=== PATIENT | male | born 1990 | race Caucasian/White ===

== ENCOUNTER 2018-08-18 22:34 | Outpatient (REF) | payer BC, SELFPAY ==
[2018-08-18 23:22] LABS: Anion Gap 11.3 mmol/L (3-11); BUN 18 mg/dL (7-18); CO2 28.7 mmol/L (21.0-32.0); CREATININE 1.14 mg/dL (0.70-1.30); Calcium 9.4 mg/dL (8.5-10.1); Chloride 100 mmol/L (98-107); Cholesterol 213 mg/dL (50-200); Glucose 79 mg/dL (70-100); HDL Cholesterol 52 mg/dL (40-60); LDL CHOLESTEROL 138 mg/dL (<100); Sodium 140 mmol/L (136-145); Triglyceride 123 mg/dL (30-150)
[2018-08-20 12:22] LABS: Lyme Ab w Rflx to Lyme Confirm Negative
[2018-08-22 01:15] LABS: Anaplasma phagocytophilum Negative (Negative); B. miyamotoi PCR Negative (Negative); Babesia divergens/MO-1 Negative (Negative); Babesia duncani Negative (Negative); Babesia microti Negative (Negative); Ehrlichia chaffeensis Negative (Negative); Ehrlichia ewingii/canis Negative (Negative); Ehrlichia muris eauclairensis Negative (Negative)
== END 2018-08-18 22:54 ==
LOC: NCHCN 22:34
PROVIDERS: PCP Physician Assistant Medical; Visit Provider Specialist/Technologist Athletic Trainer
DX: W57.XXXA Bitten or stung by nonvenomous insect and other nonvenomous arthropods, initial encounter (principal); T14.8XXA Other injury of unspecified body region, initial encounter
CPT/HCPCS: 80048; 80061; 83721; 86618; 87798

== ENCOUNTER 2018-09-26 10:10 | Emergency (ER) | payer OTHER, SELFPAY ==
[2018-09-26 10:12] VITALS: BP 138/91; PULSE 86; RESP 14; TEMP 36.6; O2SAT 100
--- NOTE | 2018-09-26 10:18 | W.ED.GENAD ---
Discharge Plan Disposition Patient Disposition: HOME Condition: Stable Discharge Details Chief Complaint: Orthopedic Clinical Impression: Contusion of left little finger Primary Care Provider: Barb Jaimes ED Provider: Godfrey Walden Home Meds and New Rx's Prescriptions: Continued albuterol sulfate 8.5 GM HFA aerosol inhaler 2 puff Inhalation Q4H PRN RF: 0 dextroamphetamine-amphetamine [Adderall] 20 mg Tablet 10 - 20 mg PO BID RF: 0 Discharge Instructions Instructions: Contusion in Adults (ED) Additional Instructions: you can take 1000mg tylenol and 600mg ibuprofen every 6 hours for pain as needed if you continue to have pain in one week see your primary care provider Medical Decision Making 28 yo male states 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 Did not hit any other body part, no falls or head trauma and only has pain of distal left and mid pinky. Has mild swelling, has full rom of the left pinky with intact sensation, doubt tendon or neurovascular injury. Will xray to eval for fx xray negative on my read, placed in splint for comfort and advised f/u with pcp if pain continues next week Differential Diagnosis sprain, fx, dislocation Imaging Data Radiologic Study: Attestation: I personally reviewed and interpreted this imaging study as follows: Imaging: X-Ray My impression: no acute findings HPI General Mode of arrival: ambulatory. Date/Time Provider Initiated Documentation: 09/26/18 10:11. Limitations to Documentation: no limitations. Information obtained by: patient. History of Present Illness 28 year old M presents to the emergency department with the chief complaint of left pinky pain, described as moderate, with intensity rated at 4. Quality is described as aching, and is localized to the left and upper extremity. Patient reports no radiation. Patient started experiencing this hour(s) (1) and it has been constant. No relieving factors improve symptom(s), No exacerbating factors reported . Patient notes no other symptoms.. Patient did receive the following treatments prior to arrival, none Related Data Home Medications Medication Instructions Recorded Confirmed albuterol sulfate 2 puff INHALATION Q4H PRN inhaler 09/08/13 09/26/18 dextroamphetamine-amphetamine 10 - 20 mg PO BID 09/26/18 09/26/18 [Adderall] Allergies Allergy/AdvReac Type Severity Reaction Status Date / Time lisinopril Allergy Severe Anaphylaxsi Unverified 09/26/18 10:17 s shellfish derived Allergy Severe throat Unverified 09/26/18 10:17 swelling dust/mold Allergy Mild Wheezing Uncoded 09/26/18 10:17 General Stated Complaint: Orthopedic MONY: 4 Review of Systems Review of Systems All systems reviewed & are unremarkable except as noted in HPI and below Constitutional Denies chills and Denies fever(s) Cardiovascular Denies chest pain and Denies dyspnea Respiratory Denies cough and Denies dyspnea Gastrointestinal Denies abdominal pain, Denies nausea and Denies vomiting Musculoskeletal Denies joint swelling Integumentary/Breasts Denies rash PFSH Social History Smoking and Tabacco status: Former Tobacco Use Exam Const General: no acute distress Orientation: alert HENMT Head: normal to inspection Ears: external ears normal General nose exam: external nose normal Mouth: moist mucous membranes Eyes General: appearance normal, both eyes and all related structures Neck Neck: normal visual inspection Resp Effort & Inspection: normal respiratory effort and able to speak in complete sentences Cardio Rate: regular rate Skin General skin exam: no rashes or lesions noted Neuro General: alert and oriented x3 Extrem General: full ROM and normal capillary refill Psych Mental Status: mental status grossly normal Course Vital Signs Temperature 36.6 C 09/26/18 10:12 Pulse 86 09/26/18 10:12 Respiratory Rate 14 09/26/18 10:12 Blood Pressure 138/91 H 09/26/18 10:12 Pulse Oximetry 100 09/26/18 10:12 Temperature 36.6 C 09/26/18 10:12 Temperature Source Skin 09/26/18 10:12 Pulse 86 09/26/18 10:12 Respiratory Rate 14 09/26/18 10:12 Blood Pressure 138/91 H 09/26/18 10:12 Blood Pressure Position Sitting 09/26/18 10:12 Pulse Oximetry 100 09/26/18 10:12 Oxygen Delivery Method Room Air 09/26/18 10:12 Oxygen Flow Rate 0 09/26/18 10:12 Pain Level 10 09/26/18 10:12
--- NOTE | 2018-09-26 10:21 | DI.RAD_ITS ---
SYMPTOM/DIAGNOSIS: TRAUMA, PAIN, LACERATION LEFT LITTLE FINGER: Three views. No bone or joint abnormality is identified. The soft tissues are unremarkable. IMPRESSION: No acute abnormality.
--- NOTE | 2018-09-26 10:27 | ED.GENADUL_ITS ---
Discharge Plan Disposition Patient Disposition: HOME Condition: Stable Discharge Details Chief Complaint: Orthopedic Clinical Impression: Contusion of left little finger Primary Care Provider: Barb Jaimes ED Provider: Godfrey Walden Home Meds and New Rx's Prescriptions: Continued albuterol sulfate 8.5 GM HFA aerosol inhaler 2 puff Inhalation Q4H PRN RF: 0 dextroamphetamine-amphetamine [Adderall] 20 mg Tablet 10 - 20 mg PO BID RF: 0 Discharge Instructions Instructions: Contusion in Adults (ED) Additional Instructions: you can take 1000mg tylenol and 600mg ibuprofen every 6 hours for pain as needed if you continue to have pain in one week see your primary care provider Medical Decision Making 28 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 Did not hit any other body part, no falls or head trauma and only has pain of distal left and mid pinky. Has mild swelling, has full rom of the left pinky with intact sensation, doubt tendon or neurovascular injury. Will xray to eval for fx xray negative on my read, placed in splint for comfort and advised f/u with pcp if pain continues next week Differential Diagnosis sprain, fx, dislocation Imaging Data Radiologic Study: Attestation: I personally reviewed and interpreted this imaging study as follows: Imaging: X-Ray My impression: no acute findings HPI General Mode of arrival: ambulatory . Date/Time Provider Initiated Documentation: 09/26/18 10:11 . Limitations to Documentation: no limitations . Information obtained by: patient . History of Present Illness 28 year old M presents to the emergency department with the chief complaint of left pinky p ain, described as moderate, with intensity rated at 4. Quality is described as aching, and is localized to the left and upper extremity. Patient reports no radiation. Patient started experiencing this hour(s) (1) and it has been constant. No relieving factors improve symptom(s), No exacerbating factors reported . Patient notes no other symptoms.. Patient did receive the following treatments prior to arrival, none Related Data Home Medications Medication Instructions Recorded Confirmed albuterol sulfate 2 puff INHALATION Q4H PRN inhaler 09/08/13 09/26/18 dextroamphetamine-amphetamine 10 - 20 mg PO BID 09/26/18 09/26/18 [Adderall] Allergies Allergy/AdvReac Type Severity Reaction Status Date / Time lisinopril Allergy Severe Anaphylaxsi Unverified 09/26/18 10:17 s shellfish derived Allergy Severe throat Unverified 09/26/18 10:17 swelling dust/mold Allergy Mild Wheezing Uncoded 09/26/18 10:17 General Stated Complaint: Orthopedic MONY: 4 Review of Systems Review of Systems All systems reviewed & are unremarkable except as noted in HPI and below Constitutional Denies chills and Denies fever(s) Cardiovascular Denies chest pain and Denies dyspnea Respiratory Denies cough and Denies dyspnea Gastrointestinal Denies abdominal pain, Denies nausea and Denies vomiting Musculoskeletal Denies joint swelling Integumentary/Breasts Denies rash PFSH Social History Smoking and Tabacco status: Former Tobacco Use Exam Const General: no acute distress Orientation: alert HENMT Head: normal to inspection Ears: external ears normal General nose exam: external nose normal Mouth: moist mucous membranes Eyes General: appearance normal, both eyes and all related structures Neck Neck: normal visual inspection Resp Effort & Inspection: normal respiratory effort and able to speak in complete sentences Cardio Rate: regular rate Skin General skin exam: no rashes or lesions noted Neuro General: alert and oriented x3 Extrem General: full ROM and normal capillary refill Psych Mental Status: mental status grossly normal Course Vital Signs Temperature 36.6 C 09/26/18 10:12 Pulse 86 09/26/18 10:12 Respiratory Rate 14 09/26/18 10:12 Blood Pressure 138/91 H 09/26/18 10:12 Pulse Oximetry 100 09/26/18 10:12 Temperature 36.6 C 09/26/18 10:12 Temperature Source Skin 09/26/18 10:12 Pulse 86 09/26/18 10:12 Respiratory Rate 14 09/26/18 10:12 Blood Pressure 138/91 H 09/26/18 10:12 Blood Pressure Position Sitting 09/26/18 10:12 Pulse Oximetry 100 09/26/18 10:12 Oxygen Delivery Method Room Air 09/26/18 10:12 Oxygen Flow Rate 0 09/26/18 10:12 Pain Level 10 09/26/18 10:12
== END 2018-09-26 11:06 | disposition home or self-care (01) ==
PROVIDERS: Emergency Provider Emergency Medicine; PCP Physician Assistant Medical
DX: S60.052A Contusion of left little finger without damage to nail, initial encounter (principal); W22.8XXA Striking against or struck by other objects, initial encounter; Y99.0 Civilian activity done for income or pay; I10 Essential (primary) hypertension
CPT/HCPCS: 29130; 99283; 73140

== ENCOUNTER 2019-01-29 00:44 | Outpatient (CLI) | payer SELFPAY ==
--- NOTE | 2019-01-29 15:25 | DI.US_ITS ---
SYMPTOM/DIAGNOSIS: ABD PAIN R10.9 ? VENT.HERNIA VS MUSCLE STRAIN ULTRASOUND ABDOMINAL WALL: The left lower quadrant was scanned in the area of the patient's pain. No hernia is demonstrated. There is no fluid collection in the anterior abdominal wall. IMPRESSION: Negative exam. If there is further suspicion of a concerning hernia, a CT could be performed.
== END 2019-01-29 01:04 ==
PROVIDERS: PCP Physician Assistant Medical; Visit Provider Specialist/Technologist Athletic Trainer
DX: R10.32 Left lower quadrant pain
CPT/HCPCS: 76857

== ENCOUNTER 2019-08-21 14:11 | Outpatient (REF) | payer BC, SELFPAY ==
[2019-08-21 19:37] LABS: HCT 46.9 % (40.0-50.0); HGB 16.4 g/dL (13.5-17.5)
[2019-08-21 20:02] LABS: BUN 16 mg/dL (7-18); CREATININE 0.86 mg/dL (0.70-1.30); Calcium 9.1 mg/dL (8.5-10.1); Chloride 103 mmol/L (98-107); Glucose 82 mg/dL (74-106); Magnesium 2.2 mg/dL (1.8-2.4); Potassium 4.1 mmol/L (3.5-5.1); Sodium 141 mmol/L (136-145); TSH (W/Ref FT4) 1.46 uIU/mL (0.36-3.74)
== END 2019-08-21 14:31 ==
LOC: NCHCN 14:11
PROVIDERS: PCP Physician Assistant Medical; Visit Provider Specialist/Technologist Athletic Trainer
DX: Z00.00 Encounter for general adult medical examination without abnormal findings (principal); Z13.29 Encounter for screening for other suspected endocrine disorder; Z13.0 Encounter for screening for diseases of the blood and blood-forming organs and certain disorders involving the immune mechanism; Z13.228 Encounter for screening for other metabolic disorders
CPT/HCPCS: 80048; 83735; 84443; 85014; 85018

== ENCOUNTER 2019-09-05 14:51 | Emergency (ER) | payer BC, SELFPAY ==
[2019-09-05 14:55] VITALS: BP 129/70; PULSE 101; RESP 16; TEMP 37.5; O2SAT 97
--- NOTE | 2019-09-05 15:06 | W.ED.GENAD ---
Discharge Plan Disposition Patient Disposition: HOME Condition: Stable Discharge Details Chief Complaint: RespSymp Clinical Impression: Influenza A Primary Care Provider: Patrick Horn ED Provider: Jerel Marsh Home Meds and New Rx's Prescriptions: No Action albuterol sulfate 8.5 GM HFA aerosol inhaler 2 puff Inhalation Q4H PRN RF: 0 dextroamphetamine-amphetamine [Adderall] 20 mg Tablet 10 - 20 mg PO BID RF: 0 Discharge Instructions Instructions: Influenza (ED) Additional Instructions: Home to rest today. Small, frequent sips of fluids so that you maintain hydration. May use Tylenol 650 to 975 mg every 6 hours as needed for aches, pains, fever. You may also use ibuprofen 600 mg every 6-8 hours. Begin bland diet as tolerated. May use the provided inhaler as needed for cough during times of illness. Medical Decision Making 29-year-old male presents with 3 to 4 days of cough, congestion, body ache, fever. Pulse is elevated at 101 at rest, blood pressure normal 129/70, temp is 37.5 and oxygenation 97%. He does have few scant end expiratory wheeze on exam and is referred for chest x-ray. Differential diagnosis would include influenza, pneumonitis, bronchitis, viral syndrome. Influenza test is positive for influenza A. Chest x-ray without focal infiltrate. Patient improved following 2 L of fluids and medications, the patient is improving. Able to take liquids and ate a popsicle without difficulty. Discussed with the patient home management. He is not a candidate for Tamiflu. He understands homecare as well as indications to seek reevaluation. HPI General Mode of arrival: ambulatory. Date/Time Provider Initiated Documentation: 09/05/19 14:52. Limitations to Documentation: no limitations. Information obtained by: patient. History of Present Illness 29 year old M presents to the emergency department with the chief complaint of Fever, cough, body aches for 4+ days, described as moderate, Quality is described as dull and constant, and is localized to the chest. and it has been constant. No relieving factors improve symptom(s), No exacerbating factors reported . Patient notes cough, fever/chills, loss of appetite and malaise. Patient did receive the following treatments prior to arrival, none Related Data Home Medications Medication Instructions Recorded Confirmed albuterol sulfate 2 puff INHALATION Q4H PRN inhaler 09/08/13 09/05/19 dextroamphetamine-amphetamine 10 - 20 mg PO BID 09/26/18 09/05/19 [Adderall] Allergies Allergy/AdvReac Type Severity Reaction Status Date / Time lisinopril Allergy Severe Anaphylaxsi Unverified 09/05/19 14:57 s shellfish derived Allergy Severe throat Unverified 09/05/19 14:57 swelling dust/mold Allergy Mild Wheezing Uncoded 09/05/19 14:57 General Stated Complaint: RespSymp MONY: 4 Review of Systems Narrative: Otherwise has been well, eating and drinking depressed but tolerating, no rash. No known travel. FOR[facility], LATER [facility] Social History Smoking/Tobacco Use Status: Former Tobacco Use Alcohol Intake: never Drug use: Never Do you feel safe in your relationship?: Yes Exam Narrative Exam Narrative: GEN: awake, alert, oriented 3. Pleasant, well groomed, interactive. HEAD: Normocephalic, atraumatic ENT: Mucous membranes moist, oropharynx unremarkable, External ear exam unremarkable EYES: PERRL, EOMI NECK: Full ROM, no SERAFIN, no menigismus CHEST/RESP: Nontender, wheeze and rhonchi at right base CARDIOVASCULAR: Borderline tachycardia at rest, no murmur, rub ger. 2+ Rad pulse bilateral ABDOMEN: Soft, nontender, no mass. +Bowel sounds EXT: Full ROM, no edema, no rash Neuro: Grossly normal neurologic exam, conversant, interactive. Psych: Speech fluent, thoughts congruent, affect normal Course Vital Signs Vital signs: Vital Signs Temperature 37.5 C 09/05/19 14:55 Pulse 101 H 09/05/19 14:55 Respiratory Rate 16 09/05/19 14:55 Blood Pressure 129/70 09/05/19 14:55 Pulse Oximetry 97 09/05/19 14:55 Temperature 37.5 C 09/05/19 14:55 Temperature Source Skin 09/05/19 14:55 Pulse 101 H 09/05/19 14:55 Respiratory Rate 16 09/05/19 14:55 Respiratory Effort Non-Labored 09/05/19 15:03 Respiratory Depth Normal 09/05/19 15:03 Blood Pressure 129/70 09/05/19 14:55 Blood Pressure Position Sitting 09/05/19 14:55 Pulse Oximetry 97 09/05/19 14:55 Oxygen Delivery Method Room Air 09/05/19 14:55 Oxygen Flow Rate 0 09/05/19 14:55 Pain Level 10 09/05/19 14:55
[2019-09-05] MEDS: Normal Saline 1,000 ML 1000 ML IV ×2 (15:30→16:35)
[2019-09-05] MEDS: Ketorolac 30 MG/ML VIAL IVP (15:32)
[2019-09-05] MEDS: Albuterol/Ipratropium 3 ML UPD VIAL UPD ×2 (15:34)
[2019-09-05 15:43] LABS: Abs Immature Grans 0.01 k/cumm (0.0-0.09); Absolute Basophil Count 0.01 k/cumm (0.0-0.2); Absolute Lymphocyte Count 0.75 k/cumm (1.2-3.4); Absolute Monocyte Count 0.76 k/cumm (0.11-0.7); Basophils % 0.1; HCT 46.4 % (40.0-50.0); HGB 15.9 g/dL (13.5-17.5); Immature Grans % 0.1 %; Lymphocytes % 8.4; Mean Corp. HGB Concentration 34.3 g/dL (32.0-36.0); Mean Corpuscular Hemoglobin 29.7 pg (27.0-33.0); Mean Corpuscular Volume 86.7 fL (80-95); Mean Platelet Volume 9.6 fL (8.0-11.0); Monocytes % 8.5; Neutrophils % 82.9; Platelet Count 182 x1000/uL (130-400); RBC 5.35 m/cumm (4.50-6.00); RBC Distribution Width 12.9 % (11.8-14.1); White Blood Cell Count 8.93 k/cumm (4.4-10.8)
[2019-09-05 15:45] LABS: BUN 15 mg/dL (7-18); CREATININE 1.02 mg/dL (0.70-1.30); Calcium 8.2 mg/dL (8.5-10.1); Chloride 99 mmol/L (98-107); Glucose 96 mg/dL (74-106); Potassium 3.8 mmol/L (3.5-5.1); Sodium 134 mmol/L (136-145)
--- NOTE | 2019-09-05 16:02 | DI.RAD_ITS ---
EXAM: XR CHEST 2V PA LATERAL INDICATION: cough, fever. COMPARISON: No exams were available for comparison TECHNIQUE: 2D digital imaging was performed. FINDINGS: The cardiac and mediastinal contours have a normal appearance. The lungs appear clear. No infiltrat e or effusion is seen. IMPRESSION: Negative chest x-ray.
[2019-09-05 16:33] VITALS: TEMP 38.5
--- NOTE | 2019-09-05 16:40 | DI.VRAD_ITS ---
PROCEDURE INFORMATION: Exam: XR Chest, 2 Views Exam date and time: 09/05/2019 4:04 PM Age: 29 years old Clinical indication: Cough; Additional info: Flu + TECHNIQUE: Imaging protocol: XR of the chest Views: 2 views. COMPARISON: No relevant prior studies available. FINDINGS: Lungs: No focal consolidation. Strandiness in the right lower lobe may represent atelectasis. Pleural space: Unremarkable. No pleural effusion. No pneumothorax. Heart/Mediastinum: Unremarkable. No cardiomegaly. Bones/joints: Unremarkable. IMPRESSION: No focal consolidation. Dictated and Authenticated by: Arnoldo Zhang MD. Ordering:ELIF Beltrán MD
[2019-09-05] MEDS: Acetaminophen 500 MG TAB 1000 MG PO (16:41)
[2019-09-05 17:07] VITALS: BP 123/62; PULSE 108; RESP 18; TEMP 37.7; O2SAT 96
[2019-09-05] MEDS: Albuterol HFA 8 GM 60 PUFF INH IH (17:11)
[2019-09-05] MEDS: Inhaler, Assist Device 1 EACH MC (17:12)
[2019-09-05 17:32] VITALS: BP 123/62; PULSE 108; RESP 18; TEMP 37.7; O2SAT 96
== END 2019-09-05 17:29 | disposition home or self-care (01) ==
PROVIDERS: Emergency Provider Emergency Medicine; PCP Specialist/Technologist Athletic Trainer
DX: J10.1 Influenza due to other identified influenza virus with other respiratory manifestations (principal)
CPT/HCPCS: 80048; 87449; 94640; 96361; 96374; 99284; 71046; 85025; 99283; J1885; J7620

== ENCOUNTER 2019-09-23 09:16 | Emergency (ER) | payer BC, SELFPAY ==
[2019-09-23] VITALS (46 sets, daily range): BP systolic 113–147; BP diastolic 60–98; PULSE 66–99; RESP 10–24; TEMP 36.6–37.1; O2SAT 98–100
[2019-09-23 09:55] LABS: Abs Immature Grans 0.01 k/cumm (0.0-0.09); Absolute Basophil Count 0.02 k/cumm (0.0-0.2); Absolute Eosinophil Count 0.05 k/cumm (0.0-0.7); Absolute Lymphocyte Count 1.48 k/cumm (1.2-3.4); Absolute Monocyte Count 0.59 k/cumm (0.11-0.7); Absolute Neutrophil Count 4.25 k/cumm (1.2-6.7); Basophils % 0.3; Eosinophils % 0.8; HCT 43.6 % (40.0-50.0); HGB 15.6 g/dL (13.5-17.5); Immature Grans % 0.2 %; Lymphocytes % 23.1; Mean Corp. HGB Concentration 35.8 g/dL (32.0-36.0); Mean Corpuscular Hemoglobin 30.1 pg (27.0-33.0); Mean Corpuscular Volume 84.2 fL (80-95); Mean Platelet Volume 9.7 fL (8.0-11.0); Monocytes % 9.2; Neutrophils % 66.4; Platelet Count 341 x1000/uL (130-400); RBC 5.18 m/cumm (4.50-6.00); RBC Distribution Width 12.4 % (11.8-14.1)
[2019-09-23 10:19] LABS: ALT 96 U/L (16-63); AST 35 U/L (15-37); Albumin 4.1 g/dL (3.4-5.0); Alkaline Phosphatase 101 U/L (46-116); Anion Gap 7.5 mmol/L (3-11); BUN 18 mg/dL (7-18); Bilirubin, Total 0.5 mg/dL (0.2-1.0); CO2 29.5 mmol/L (21.0-32.0); CREATININE 1.01 mg/dL (0.70-1.30); Calcium 8.6 mg/dL (8.5-10.1); Chloride 103 mmol/L (98-107); Glucose 98 mg/dL (74-106); Magnesium 1.9 mg/dL (1.8-2.4); NT-proBNP 14 pg/mL (<300); Potassium 4.3 mmol/L (3.5-5.1); Sodium 140 mmol/L (136-145); Troponin I < 0.05 ng/Ml (<0.06)
[2019-09-23] MEDS: Normal Saline Flush 10 ML SYR IVP ×2 (10:47→11:30)
[2019-09-23 11:01] LABS: D-Dimer 106 ng/mlFEU (<500)
--- NOTE | 2019-09-23 11:04 | DI.RAD_ITS ---
EXAM: XR CHEST 2V PA LATERAL CLINICAL HISTORY: chest pain TECHNIQUE: 2D digital imaging was performed. COMPARISON: No exams were available for comparison FINDINGS: The cardiac and mediastinal contours have a normal appearance. The lungs are well inflated and clear . No infiltrate, effusion or pneumothorax is seen. No spine or rib fracture is identified. IMPRESSION: Negative chest x-ray.
--- NOTE | 2019-09-23 11:18 | W.ED.GENAD ---
Discharge Plan Disposition Patient Disposition: HOME Condition: Stable Discharge Details Chief Complaint: Chest Pain Clinical Impression: Chest pain, Pericarditis Primary Care Provider: Patrick Horn ED Provider: Susan Gamez Home Meds and New Rx's Prescriptions: New colchicine [Colcrys] 0.6 mg tablet 0.6 mg PO DAILY Qty: 30 RF: 0 oxycodone-acetaminophen [Percocet] 5-325 mg tablet 1 tab PO BID PRN (Reason: pain) Qty: 8 RF: 0 Continued albuterol sulfate 8.5 GM HFA aerosol inhaler 2 puff Inhalation Q4H PRN RF: 0 dextroamphetamine-amphetamine [Adderall] 20 mg Tablet 10 - 20 mg PO BID RF: 0 Discharge Instructions Instructions: Ibuprofen (By mouth), Oxycodone/Acetaminophen (By mouth), Omeprazole (By mouth), Colchicine (By mouth), Chest Pain (ED), Chronic Pericarditis (ED) Additional Instructions: Please return immediately to the emergency department if you develop any new or worsening symptoms, if your condition does not improve as expected, or if you become otherwise concerned. It is extremely important that you call soon as possible to make an appointment to be seen in follow-up for this visit by your primary care doctor and that you attend your scheduled appointment with your junior analyst on 10/05/2019. You will need to take 0.6 mg of colchicine daily for 3 months, you are being prescribed a one-month prescription at this time. Please take 600 mg of ibuprofen 3 times daily for 1 month, then 600 mg of ibuprofen 2 times daily for 1 week, then 600 mg of ibuprofen once daily for 1 week. You are being prescribed Percocet for pain. Percocet is a sedating medication and can be dangerous if not taking as prescribed. Please take Percocet only as prescribed, do not take Percocet before driving, operating machinery, making important decisions, or taking care of small children. Please do not take any other sedating medications, drugs, or alcohol while taking Percocet. Referrals: Patrick Horn [Primary Care Provider] - Discharge Data Discharge Date/Time-TO BE ENTERED AT DEPARTURE: 09/23/19 13:57 Medical Decision Making Vargas Shen is a 29-year-old man with a history of hypertension, asthma, ADHD, recurrent pericarditis presenting to the emergency department with chest pain after being diagnosed with pericarditis 2 weeks ago; patient started medications 2 weeks ago, had gradual improvement in pain and then 1 week ago developed worsening of pain to initial level. On exam patient is very well and nontoxic appearing. Benign cardiopulmonary exam. Grossly nonfocal neurologic exam. POCUS shows no pericardial effusion. Concern for continued pericarditis in setting of inappropriately dosed NSAIDs/colchicine therapy (typically treatment involves 3 months of daily colchicine and 3 times daily not as needed NSAIDs for several weeks), doubt ACS/pulmonary embolism, myocarditis. Exam/history is not consistent with sepsis, acute aortic process, other acute emergent life-threatening etiology. Plan for EKG, chest x-ray, screening labs, repeat Trope/EKG if initial work-up negative. Will discuss patient with cardiology. Patient given IV morphine for pain, patient reporting minimal relief. Patient reports that he was prescribed Percocet in the distant past for pericarditis, which seem to work well. Will give Percocet. Discussed patient with Dr. Montiel of cardiology at [facility], who recommends patient be restarted on daily colchicine and 3 times daily ibuprofen. Patient is unsure of who his cardiology appointment is with, he has not seen this particular junior analyst before, but junior analyst practices in [place]. Likely part of [facility] practice. I called [facility] and patient presentation and results with cardiology team, (EKG faxed, cardiology reviewed) who confirmed that patient should be taking 0.6 mg of colchicine once daily given weight less than 70 kg, 600 mg of ibuprofen 3 times a day for 4 weeks with taper thereafter, no further emergent evaluation/treatment recommended at this time.. They will ensure patient has close outpatient follow-up. Plan to increase omeprazole to 20 mg twice daily. Will give short course Percocet for acute pain. VPMS checked without red flags. I had a lengthy discussion with the patient regarding medication dosing, including colchicine 0.6 mg once daily, ibuprofen 600 mg 3 times daily for 1 month with details for taper, omeprazole 20 mg twice daily. I had a lengthy discussion with Patient regarding return to emergency department precautions, home care, safe use of Percocet, and importance of outpatient follow-up. Pt verbalizes understanding of the plan and is amenable. Patient is ambulatory in the emergency department without issue. Patient discharged to home with clear plan for outpatient follow-up. All questions were answered. Disposition decision was made weighing the risks and benefits of hospitalization versus outpatient treatment, the risk for further decompensation, and the patient's wishes. Medical Records Medical records reviewed: Yes I reviewed the patient's medical records. Imaging Data Radiologic Study: Attestation: I personally reviewed and interpreted this imaging study as follows: Radiologist's impression: EXAM: XR CHEST 2V PA LATERAL CLINICAL HISTORY: chest pain TECHNIQUE: 2D digital imaging was performed. COMPARISON: No exams were available for comparison FINDINGS: The cardiac and mediastinal contours have a normal appearance. The lungs are well inflated and clear. No infiltrate, effusion or pneumothorax is seen. No spine or rib fracture is identified. IMPRESSION: Negative chest x-ray. Lab Data Lab results reviewed: Yes I reviewed the patient's lab results. Labs: Laboratory Tests Range/Units 09/23/19 09/23/19 09/23/19 09:35 09:35 09:35 WBC (4.4-10.8) k/cumm 6.40 RBC (4.50-6.00) m/cumm 5.18 Hgb (13.5-17.5) g/dL 15.6 Hct (40.0-50.0) % 43.6 MCV (80-95) fL 84.2 MCH (27.0-33.0) pg 30.1 MCHC (32.0-36.0) g/dL 35.8 RDW (11.8-14.1) % 12.4 Plt Count (130-400) x1000/uL 341 D MPV (8.0-11.0) fL 9.7 Immature Gran % % 0.2 Neutrophils % 66.4 Lymphocytes % 23.1 Monocytes % 9.2 Eosinophils % 0.8 Basophils % 0.3 Absolute Neutrophils (1.2-6.7) k/cumm 4.25 Absolute Lymphocytes (1.2-3.4) k/cumm 1.48 Absolute Monocytes (0.11-0.7) k/cumm 0.59 Absolute Eosinophils (0.0-0.7) k/cumm 0.05 Absolute Basophils (0.0-0.2) k/cumm 0.02 ESR (0-15) mm/hr D-Dimer (<500) ng/mlFEU 106 Sodium (136-145) mmol/L 140 Potassium (3.5-5.1) mmol/L 4.3 Chloride (98-107) mmol/L 103 Carbon Dioxide (21.0-32.0) mmol/L 29.5 Anion Gap (3-11) mmol/L 7.5 BUN (7-18) mg/dL 18 Creatinine (0.70-1.30) mg/dL 1.01 Estimated GFR/1.73 m2 (mL/min/1.73m2) >= 60.00 Glucose (74-106) mg/dL 98 Calcium (8.5-10.1) mg/dL 8.6 Magnesium (1.8-2.4) mg/dL 1.9 Total Bilirubin (0.2-1.0) mg/dL 0.5 AST (15-37) U/L 35 ALT (16-63) U/L 96 H Alkaline Phosphatase (46-116) U/L 101 Troponin I (<0.06) ng/Ml < 0.05 C-Reactive Protein (0.0-0.3) mg/dL NT-Pro-B Natriuret Pep (<300) pg/mL 14 Total Protein (6.4-8.2) g/dL 7.0 Albumin (3.4-5.0) g/dL 4.1 Range/Units 09/23/19 09/23/19 09/23/19 12:10 12:10 12:10 WBC (4.4-10.8) k/cumm RBC (4.50-6.00) m/cumm Hgb (13.5-17.5) g/dL Hct (40.0-50.0) % MCV (80-95) fL MCH (27.0-33.0) pg MCHC (32.0-36.0) g/dL RDW (11.8-14.1) % Plt Count (130-400) x1000/uL MPV (8.0-11.0) fL Immature Gran % % Neutrophils % Lymphocytes % Monocytes % Eosinophils % Basophils % Absolute Neutrophils (1.2-6.7) k/cumm Absolute Lymphocytes (1.2-3.4) k/cumm Absolute Monocytes (0.11-0.7) k/cumm Absolute Eosinophils (0.0-0.7) k/cumm Absolute Basophils (0.0-0.2) k/cumm ESR (0-15) mm/hr 3 D-Dimer (<500) ng/mlFEU Sodium (136-145) mmol/L Potassium (3.5-5.1) mmol/L Chloride (98-107) mmol/L Carbon Dioxide (21.0-32.0) mmol/L Anion Gap (3-11) mmol/L BUN (7-18) mg/dL Creatinine (0.70-1.30) mg/dL Estimated GFR/1.73 m2 (mL/min/1.73m2) Glucose (74-106) mg/dL Calcium (8.5-10.1) mg/dL Magnesium (1.8-2.4) mg/dL Total Bilirubin (0.2-1.0) mg/dL AST (15-37) U/L ALT (16-63) U/L Alkaline Phosphatase (46-116) U/L Troponin I (<0.06) ng/Ml < 0.05 C-Reactive Protein (0.0-0.3) mg/dL < 0.05 NT-Pro-B Natriuret Pep (<300) pg/mL Total Protein (6.4-8.2) g/dL Albumin (3.4-5.0) g/dL ECG Data Attestation: I personally reviewed and interpreted this ECG (s) as follows: Interpretation: EKG shows sinus rhythm at 91, normal axis, no acute ischemic ST changes, subtle OK depression, nondiagnostic EKG EKG 12:18 shows sinus rhythm at 64, normal axis, no acute ischemic ST changes, subtle OK depression, nondiagnostic EKG HPI General Mode of arrival: ambulatory. Date/Time Provider Initiated Documentation: 09/23/19 09:28. Limitations to Documentation: no limitations. Information obtained by: patient, RN notes reviewed and old records reviewed. HPI Narrative: Vargas Shen is a 29-year-old man with a history of hypertension, ADHD, recurrent pericarditis presenting to the emergency department with chest pain. Patient reports that he was first diagnosed 3 years ago with pericarditis. He has had several episodes of pericarditis since then, and he states that he has had 2 episodes already in the past year not including current episode. Patient had leftover indomethacin and took 1 tab this morning. Patient reports that 3 to 4 days after initially starting medications he began to have a decrease in his chest pain, but he reports that 1 week ago chest pain seemed to gradually increase and now has returned to its initial level. Patient reports that pain is worse when he is bending forward, and is also worse with any positional change, exertion, or deep breathing. Patient reports that all of his symptoms are typical in location, severity, and quality to his usual episodes of pericarditis, however typically his symptoms improve with medication. Has not been taking pain medication. He denies any other pain, fever, vomiting, diarrhea, numbness, weakness, rash, cough, shortness of breath. Has been eating and drinking as usual. No recent travel. Has appointment to see a junior analyst in 1 month. Related Data Home Medications Medication Instructions Recorded Confirmed albuterol sulfate 2 puff INHALATION Q4H PRN inhaler 09/08/13 09/23/19 dextroamphetamine-amphetamine 10 - 20 mg PO BID 09/26/18 09/23/19 [Adderall] colchicine [Colcrys] 0.6 mg PO DAILY #30 tab 09/23/19 oxycodone-acetaminophen [Percocet] 1 tab PO BID PRN #8 tab 09/23/19 Previous Rx's Medication Instructions Recorded colchicine [Colcrys] 0.6 mg PO DAILY #30 tab 09/23/19 oxycodone-acetaminophen [Percocet] 1 tab PO BID PRN #8 tab 09/23/19 Allergies Allergy/AdvReac Type Severity Reaction Status Date / Time lisinopril Allergy Severe Anaphylaxsi Unverified 09/23/19 09:27 s shellfish derived Allergy Severe throat Unverified 09/23/19 09:27 swelling dust/mold Allergy Mild Wheezing Uncoded 09/23/19 09:27 General Stated Complaint: Chest Pain MONY: 2 Review of Systems Narrative: Constitutional: denies fevers Eyes: denies eye pain ENT: denies ear pain, dental pain, sore throat Cardiovascular: denies edema, reports chest pain Respiratory: denies SOB, cough GI: denies abdominal pain, vomiting, diarrhea : denies flank pain MSK: denies back pain, neck pain, arthralgias, myalgias Skin: denies rash Neuro: denies headaches, numbness, weakness PFSH Social History Smoking/Tobacco Use Status: Former Tobacco Use Alcohol Intake: never Drug use: Never Do you feel safe in your relationship?: Yes Exam Narrative Exam Narrative: Constitutional: well and [id number], pleasant, conversing normally HENT: head atraumatic/normocephalic/normal inspection, mucous membranes moist Eyes: conjunctiva normal, sclera normal, pupils 3mm b/l Neck: no stridor, normal ROM, trachea midline Chest: normal inspection Resp: normal work of breathing, LCTAB Cardio: normal rate, normal rhythm, no murmur appreciated Back: normal inspection, no rash Skin: warm, dry, normal color, no rash Neuro: alert, not altered, grossly non-focal, normal tone Ext: no edema, no posterior calf tenderness to palpation Psych: normal mood, normal affect, normal behavior Course Vital Signs Vital signs: Vital Signs Temperature 37.1 C 09/23/19 09:24 Pulse 89 09/23/19 09:24 Respiratory Rate 16 09/23/19 09:24 Blood Pressure 136/96 H 09/23/19 09:24 Pulse Oximetry 100 09/23/19 09:24 Temperature 37.1 C 09/23/19 09:24 Pulse 71 09/23/19 10:46 Pulse 87 09/23/19 10:50 Respiratory Rate 19 09/23/19 10:50 Respiratory Effort Non-Labored 09/23/19 09:40 Respiratory Depth Normal 09/23/19 09:40 Respiratory Pattern Normal 09/23/19 09:40 Blood Pressure 125/71 09/23/19 10:46 Blood Pressure Mean 84 09/23/19 10:46 Blood Pressure Position Supine 09/23/19 09:24 Pulse Oximetry 100 09/23/19 10:50 Oxygen Delivery Method Room Air 09/23/19 09:24 Oxygen Flow Rate 0 09/23/19 09:24 Pain Level 8 09/23/19 10:47 Lab/Test Results Lab/Test Results: Laboratory Tests Range/Units 09/23/19 09/23/19 09/23/19 09:35 09:35 09:35 WBC (4.4-10.8) k/cumm 6.40 RBC (4.50-6.00) m/cumm 5.18 Hgb (13.5-17.5) g/dL 15.6 Hct (40.0-50.0) % 43.6 MCV (80-95) fL 84.2 MCH (27.0-33.0) pg 30.1 MCHC (32.0-36.0) g/dL 35.8 RDW (11.8-14.1) % 12.4 Plt Count (130-400) x1000/uL 341 D MPV (8.0-11.0) fL 9.7 Immature Gran % % 0.2 Neutrophils % 66.4 Lymphocytes % 23.1 Monocytes % 9.2 Eosinophils % 0.8 Basophils % 0.3 Absolute Neutrophils (1.2-6.7) k/cumm 4.25 Absolute Lymphocytes (1.2-3.4) k/cumm 1.48 Absolute Monocytes (0.11-0.7) k/cumm 0.59 Absolute Eosinophils (0.0-0.7) k/cumm 0.05 Absolute Basophils (0.0-0.2) k/cumm 0.02 D-Dimer (<500) ng/mlFEU 106 Sodium (136-145) mmol/L 140 Potassium (3.5-5.1) mmol/L 4.3 Chloride (98-107) mmol/L 103 Carbon Dioxide (21.0-32.0) mmol/L 29.5 Anion Gap (3-11) mmol/L 7.5 BUN (7-18) mg/dL 18 Creatinine (0.70-1.30) mg/dL 1.01 Estimated GFR/1.73 m2 (mL/min/1.73m2) >= 60.00 Glucose (74-106) mg/dL 98 Calcium (8.5-10.1) mg/dL 8.6 Magnesium (1.8-2.4) mg/dL 1.9 Total Bilirubin (0.2-1.0) mg/dL 0.5 AST (15-37) U/L 35 ALT (16-63) U/L 96 H Alkaline Phosphatase (46-116) U/L 101 Troponin I (<0.06) ng/Ml < 0.05 NT-Pro-B Natriuret Pep (<300) pg/mL 14 Total Protein (6.4-8.2) g/dL 7.0 Albumin (3.4-5.0) g/dL 4.1
[2019-09-23] MEDS: Normal Saline 1,000 ML 1000 ML IV (11:30)
[2019-09-23] MEDS: oxyCODONE 5 mg/Acetaminophen 325 mg TAB 1 TAB PO (12:02)
[2019-09-23] MEDS: Colchicine 0.6 MG TAB PO (12:13)
[2019-09-23 12:41] LABS: C-Reactive Protein < 0.05 mg/dL (0.0-0.3)
[2019-09-23 12:43] LABS: Troponin I < 0.05 ng/Ml (<0.06)
[2019-09-23 13:04] LABS: ESR 3 mm/hr (0-15)
== END 2019-09-23 13:57 | disposition home or self-care (01) ==
PROVIDERS: Emergency Provider Student in an Organized Health Care Education/Training Program; PCP Specialist/Technologist Athletic Trainer
DX: I30.8 Other forms of acute pericarditis (principal); R07.9 Chest pain, unspecified; I10 Essential (primary) hypertension
CPT/HCPCS: 36415; 80053; 85652; 93005; 96361; 96374; 99285; 71046; 83735; 83880; 84484; 85025; 85379; 86140; 93010

== ENCOUNTER 2020-03-14 19:46 | Emergency (ER) | payer BC, SELFPAY ==
[2020-03-14] VITALS (16 sets, daily range): BP systolic 117–169; BP diastolic 76–119; PULSE 58–107; RESP 16–29; TEMP 36.4–36.8; O2SAT 98–100
--- NOTE | 2020-03-14 19:52 | ED.GENADUL_ITS ---
Discharge Plan Disposition Patient Disposition: HOME Condition: Improving Discharge Details Chief Complaint: Allergic Clinical Impression: Hymenoptera sting Primary Care Provider: Patrick Horn ED Provider: Jerel Marsh Home Meds and New Rx's Prescriptions: New prednisone 20 mg tablet 40 mg PO DAILY 3 Days Qty: 6 RF: 0 No Action albuterol sulfate 8.5 GM HFA aerosol inhaler 2 puff Inhalation Q4H PRN RF: 0 dextroamphetamine-amphetamine [Adderall] 20 mg Tablet 10 - 20 mg PO BID RF: 0 colchicine [Colcrys] 0.6 mg tablet 0.6 mg PO DAILY Qty: 30 RF: 0 Discharge Instructions Additional Instructions: Please take prednisone as prescribed. May apply Benadryl cream and or [id number]-[id number] hydrocortisone cream to area of the bite to reduce discomfort and itching. Continue your regular medications. Return to the emergency department for any acute concern. 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 He is otherwise been well. He arrives slightly anxious, hypertensive and tachycardic. IV placed, patient given fluid bolus, parenteral steroids, antihistamines. He is observed. Patient improved. Subjectively better and blood pressure and pulse improving. I will treat him with a small burst of steroids to prevent recrudescence of symptoms. He is stable and appropriate for discharge to home at this time. HPI General Mode of arrival: ambulatory . Date/Time Provider Initiated Documentation: 03/14/20 19:48 . Limitations to Documentation: no limitations . Information obtained by: patient . History of Present Illness 29 year old M presents to the emergency department with the chief complaint of Insect sting right shoulder, described as moderate and similar to prior episodes, Quality is described as dull and constant, and is localized to the right and upper extremity. Patient reports no radiation. Patient started experiencing this minute(s) and it has been constant. No relieving factors improve symptom(s), No exacerbating factors reported . Patient notes other (Slight chest tightness); denies shortness of breath. Patient did receive the following treatments prior to arrival, none Related Data Home Medications Medication Instructions Recorded Confirmed albuterol sulfate 2 puff INHALATION Q4H PRN inhaler 09/08/13 03/14/20 dextroamphetamine-amphetamine 10 - 20 mg PO BID 09/26/18 03/14/20 [Adderall] colchicine [Colcrys] 0.6 mg PO DAILY #30 tab 09/23/19 03/14/20 prednisone 40 mg PO DAILY 3 Days #6 tab 03/14/20 Previous Rx's Medication Instructions Recorded colchicine [Colcrys] 0.6 mg PO DAILY #30 tab 09/23/19 prednisone 40 mg PO DAILY 3 Days #6 tab 03/14/20 Allergies Allergy/AdvReac Type Severity Reaction Status Date / Time lisinopril Allergy Severe Anaphylaxsi Unverified 03/14/20 19:52 s shellfish derived Allergy Severe throat Unverified 03/14/20 19:52 swelling dust/mold Allergy Mild Wheezing Uncoded 03/14/20 19:52 General Stated Complaint: Allergic MONY: 2 Review of Systems Narrative: No other complaint. 4 systems reviewed and otherwise negative [facility] Social History Smoking/Tobacco Use Status: Former Tobacco Use Alcohol Intake: never Drug use: Never Substance use type: does not use Do you feel safe at home: Yes Do you feel safe in your relationship?: Yes Exam Narrative Exam Narrative: GEN: awake, alert, oriented 3. Pleasant, well groomed, interactive. HEAD: Normocephalic, atraumatic ENT: Mucous membranes moist, oropharynx unremarkable, External ear exam unremarkable EYES: PERRL, EOMI NECK: Full ROM, no SERAFIN, no menigismus CHEST/RESP: Nontender, clear to auscultation bilateral, no wheeze/rhonchi/rales CARDIOVASCULAR: RRR, no murmur, rub ger. 2+ Rad pulse bilateral ABDOMEN: Soft, nontender, no mass. +Bowel sounds EXT: Full ROM, no edema, 5 cm area of raised erythema right shoulder with probable central area of an envenomation Neuro: Grossly normal neurologic exam, conversant, interactive. Psych: Speech fluent, thoughts congruent, affect anxious Course Vital Signs Vital signs: Vital Signs Temperature 36.8 C 03/14/20 19:50 Pulse 107 H 03/14/20 19:50 Blood Pressure 169/119 H 03/14/20 19:50 Pulse Oximetry 98 03/14/20 19:50 Temperature 36.8 C 03/14/20 19:50 Temperature Source Temporal Artery Scan 03/14/20 19:50 Pulse 107 H 03/14/20 19:50 Blood Pressure 169/119 H 03/14/20 19:50 Blood Pressure Position Sitting 03/14/20 19:50 Pulse Oximetry 98 03/14/20 19:50 Oxygen Delivery Method Room Air 03/14/20 19:50 Oxygen Flow Rate 0 03/14/20 19:50
[2020-03-14] MEDS: Loratidine 10 MG TAB PO (20:05)
[2020-03-14] MEDS: methylPREDNISolone SUCC 125 MG VIAL IVP (20:05)
[2020-03-14] MEDS: diphenhydrAMINE 50 MG/ML VIAL IVP (20:06)
[2020-03-14] MEDS: Normal Saline Flush 10 ML SYR IVP (20:06)
[2020-03-14] MEDS: Normal Saline 1,000 ML 1000 ML IV (20:06)
[2020-03-14] MEDS: FAMOTIDINE 20 MG/50 ML BAG 200 MG IVPB (20:10)
== END 2020-03-14 21:45 | disposition home or self-care (01) ==
PROVIDERS: Emergency Provider Emergency Medicine; PCP Specialist/Technologist Athletic Trainer
DX: T63.461A Toxic effect of venom of wasps, accidental (unintentional), initial encounter (principal); R07.89 Other chest pain; R00.0 Tachycardia, unspecified; R03.0 Elevated blood-pressure reading, without diagnosis of hypertension; R21 Rash and other nonspecific skin eruption
CPT/HCPCS: 96361; 96375; 99284; J1200; J2930

== ENCOUNTER 2021-05-04 20:52 | Outpatient (REF) | payer SELFPAY ==
[2021-05-04 19:29] LABS: Abs Immature Grans 0.02 10^3/uL (0.0-0.06); Absolute Basophil Count 0.04 10^3/uL (0.0-0.2); Absolute Eosinophil Count 0.18 10^3/uL (0.0-0.7); Absolute Lymphocyte Count 1.74 10^3/uL (1.2-3.4); Absolute Monocyte Count 0.66 10^3/uL (0.1-0.8); Absolute Neutrophil Count 4.23 10^3/uL (1.2-6.7); Basophils % 0.6; Eosinophils % 2.6; HCT 48.4 % (40.0-50.0); HGB 16.7 g/dL (13.5-17.5); Immature Grans % 0.3; Lymphocytes % 25.3; MCH 30.1 pg (27.0-33.0); MCHC 34.5 % (32.0-36.0); MCV 87.2 fL (80-95); Monocytes % 9.6; Neutrophils % 61.6; Nucleated RBC 0 %; Platelet Count 322 10^3/uL (130-400); RBC 5.55 10^6/uL (4.36-5.78); RDW 11.7 % (11.8-14.1); RDW-SD 37.6 fL; WBC 6.87 10^3/uL (4.4-10.8)
[2021-05-06 13:24] LABS: COVID-19 RT-PCR UVMMC Result Negative (Negative)
== END 2021-05-04 20:53 | disposition home or self-care (01) ==
LOC: NCHCN 20:52
PROVIDERS: PCP Specialist/Technologist Athletic Trainer; Visit Provider Nurse Practitioner Family
DX: Z20.822 Contact with and (suspected) exposure to COVID-19 (principal); R53.83 Other fatigue
CPT/HCPCS: U0003; 85025

== ENCOUNTER 2022-04-20 16:57 | Emergency (ER) | payer MEDICAID, SELFPAY ==
[2022-04-20 17:12] VITALS: BP 123/76; PULSE 86; RESP 18; TEMP 36.8; O2SAT 100
[2022-04-20] MEDS: Lactated Ringers 1,000 ML 1000 ML IV (18:10)
[2022-04-20 18:18] LABS: Abs Immature Grans 0.02 10^3/uL (0.0-0.06); Absolute Basophil Count 0.03 10^3/uL (0.0-0.2); Absolute Eosinophil Count 0.17 10^3/uL (0.0-0.7); Absolute Lymphocyte Count 1.08 10^3/uL (1.2-3.4); Absolute Monocyte Count 0.53 10^3/uL (0.1-0.8); Absolute Neutrophil Count 5.81 10^3/uL (1.2-6.7); Basophils % 0.4; Eosinophils % 2.2; HCT 45.6 % (40.0-50.0); Immature Grans % 0.3; Lymphocytes % 14.1; MCHC 35.1 % (32.0-36.0); MCV 86 fL (80-95); MPV 9.6 fL (8.0-11.0); Monocytes % 6.9; Neutrophils % 76.1; Platelet Count 230 10^3/uL (130-400); RBC 5.33 10^6/uL (4.36-5.78); RDW 12.3 % (11.8-14.1); RDW-SD 38.4 fL; WBC 7.64 10^3/uL (4.4-10.8)
[2022-04-20 18:27] LABS: ALT 50 U/L (16-63); AST 26 U/L (15-37); Albumin 3.5 g/dL (3.4-5.0); Alkaline Phosphatase 106 U/L (46-116); Anion Gap 7.3 mmol/L (3-11); BUN 17 mg/dL (7-18); Bilirubin, Total 0.4 mg/dL (0.2-1.0); CO2 28.7 mmol/L (21.0-32.0); CREATININE 1.1 mg/dL (0.70-1.30); Calcium 8.4 mg/dL (8.5-10.1); Chloride 102 mmol/L (98-107); Glucose 103 mg/dL (74-106); Potassium 3.7 mmol/L (3.5-5.1); Sodium 138 mmol/L (136-145); Total Protein 6.9 g/dL (6.4-8.2)
[2022-04-20 18:57] LABS: COVID-19 PCR Negative (Negative); Influenza A PCR Negative (Negative); Influenza B PCR Negative (Negative); RSV PCR Negative (Negative)
[2022-04-20 19:02] LABS: Source Nasopharynx
[2022-04-20 20:15] LABS: Bilirubin Negative (Negative); Blood Negative (Negative); Clarity Sl Cloudy (Clear); Glucose Negative (Negative); Ketones Negative (Negative); Leukocyte Esterase Negative (Negative); Nitrite Negative (Negative); Specific Gravity >= 1.030 (1.005-1.025); Urobilinogen 0.2 EU/dL (Up TO 0.2)
[2022-04-20 20:21] LABS: Bacteria Few HPF (Negative); C & S Indicated? No; Casts Negative LPF (Negative); Crystals Negative HPF (Negative); Epithelial Cells Few HPF (Negative); Mucus Negative (Negative); RBC Negative HPF (0-2); WBC 0-2 HPF (0-5)
[2022-04-23 10:51] LABS: Lyme Ab w Rflx to Lyme Confirm Negative (Negative)
--- NOTE | 2022-04-23 21:46 | ED.GENADUL_ITS ---
Discharge Plan Disposition Patient Disposition: HOME Condition: Stable Discharge Details Clinical Impression: Diarrhea, Acute viral syndrome Primary Care Provider: Patrick Horn ED Provider: Nolvia Pichardo Home Meds and New Rx's Prescriptions: Continued albuterol sulfate 8.5 GM HFA aerosol inhaler 2 puff Inhalation Q4H PRN dextroamphetamine-amphetamine [Adderall] 20 mg Tablet 10 - 20 mg PO BID Rx Instructions: 20mg qam 10mg afternoon epinephrine 0.3 mg/0.3 mL auto-injector 0.3 mg IM ONCE Qty: 1 0RF Rx Instructions: as a single dose if needed for impending anaphylaxis colchicine [Colcrys] 0.6 mg tablet 0.6 mg PO DAILY Qty: 30 0RF Discharge Instructions Instructions: Acute Diarrhea (ED), Viral Syndrome (ED) Additional Instructions: keep yourself hydrated Take ibuprofen and Tylenol for pain Bring back a stool sample to the lab as soon as you are able to and return earlier should he have new or worsening complaints Your tick panel should be back in approximately 72 hours Referrals: Patrick Horn [Primary Care Provider] - 1 day Discharge Data Discharge Date/Time-TO BE ENTERED AT DEPARTURE: 04/20/22 20:30 Medical Decision Making Patient appears well, his diagnostic labs do not show significant evidence of acute abnormality, unable to provide stool sample in the emergency department given supplies for home Do not see an obvious bacterial source of infection No rashes or lesions Tick panel pending [id number] remedies recommended Return precautions discussed and patient expressed understanding Medical Records Medical records reviewed: Yes I reviewed the patient's medical records. Lab Data Lab results reviewed: Yes I reviewed the patient's lab results. HPI General Date/Time Provider Initiated Documentation: 04/20/22 17:42 . HPI Narrative: This 31-year-old male presents with fever, myalgias, and diarrhea for the past 2 days. T-max of 103. Denies any known sick contacts. Denies any cough or runny nose. COVID test negative at home. Denies any blood in stool. Denies any nausea or vomiting. Otherwise reportedly. Denies abdominal pain, camping, foreign travel. Related Data Home Medications Medication Instructions Recorded Confirmed albuterol sulfate 90 mcg/actuation 2 puff inhalation Q4H PRN 09/08/13 04/20/22 aerosol inhaler dextroamphetamine-amphetamine 20 10 - 20 mg PO BID 09/26/18 04/20/22 mg tablet (Adderall) colchicine 0.6 mg tablet (Colcrys) 0.6 mg PO DAILY #30 tabs 09/23/19 03/14/20 epinephrine 0.3 mg/0.3 mL 0.3 mg (0.3 mL) IM ONCE #1 ea 03/14/20 04/20/22 injection, auto-injector Previous Rx's Medication Instructions Recorded colchicine 0.6 mg tablet (Colcrys) 0.6 mg PO DAILY #30 tabs 09/23/19 epinephrine 0.3 mg/0.3 mL 0.3 mg (0.3 mL) IM ONCE #1 ea 03/14/20 injection, auto-injector Allergies Allergy/AdvReac Type Severity Reaction Status Date / Time lisinopril Allergy Severe Anaphylaxsi Unverified 03/14/20 19:52 s shellfish derived Allergy Severe throat Unverified 03/14/20 19:52 swelling bee venom protein (honey bee) Allergy Swelling/Ed Unverified 04/20/22 17:15 stephanie dust/mold Allergy Mild Wheezing Uncoded 03/14/20 19:52 General Stated Complaint: GenMedical MONY: 3 Review of Systems All systems reviewed & are unremarkable except as noted in HPI and below PFSH All Active Problems (Updated 04/20/22 @ 19:34 by NIR Gutierrez) Hypertension (Chronic) Chest pain (Acute) Pericarditis (Acute) Diarrhea (Acute) Acute viral syndrome (Acute) Social History Smoking/Tobacco Use Status: Former Tobacco Use Smoking risk assessment performed?: Yes Alcohol Intake: never Drug use: Occasionally Substance use type: marijuana Do you feel safe at home: Yes Do you feel safe in your relationship?: Yes Exam Const General: cooperative, comfortable and no acute distress HENMT Throat: uvula midline Eyes Sclera: sclerae normal Neck Other: no meningismus Resp Effort & Inspection: normal respiratory effort Auscultation: clear to auscultation bilaterally Cardio Rate: regular rate Rhythm: regular rhythm GI Inspection: normal to inspection Other: non-tender Skin General skin exam: no rashes or lesions noted Neuro General: patient alert and patient oriented x3 Course Vital Signs Vital signs: Vital Signs Temperature 36.8 C 04/20/22 17:12 Pulse 86 04/20/22 17:12 Respiratory Rate 18 04/20/22 17:12 Blood Pressure 123/76 04/20/22 17:12 Pulse Oximetry 100 04/20/22 17:12 Temperature 36.8 C 04/20/22 17:12 Temperature Source Temporal Artery Scan 04/20/22 17:12 Pulse 86 04/20/22 17:12 Respiratory Rate 18 04/20/22 17:12 Respiratory Effort Non-Labored 04/20/22 18:11 Respiratory Depth Normal 04/20/22 18:11 Respiratory Pattern Normal 04/20/22 18:11 Blood Pressure 123/76 04/20/22 17:12 Blood Pressure Position Sitting 04/20/22 17:12 Pulse Oximetry 100 04/20/22 17:12 Oxygen Delivery Method Room Air 04/20/22 17:12 Oxygen Flow Rate 0 04/20/22 17:12 Lab/Test Results Lab/Test Results: Laboratory Tests Range/Units 04/20/22 04/20/22 04/20/22 18:00 18:00 18:00 WBC (4.4-10.8) 10^3/uL 7.64 RBC (4.36-5.78) 10^6/uL 5.33 Hgb (13.5-17.5) g/dL 16.0 Hct (40.0-50.0) % 45.6 MCV (80-95) fL 86 MCH (27.0-33.0) pg 30.0 MCHC (32.0-36.0) % 35.1 RDW (11.8-14.1) % 12.3 Plt Count (130-400) 10^3/uL 230 MPV (8.0-11.0) fL 9.6 Immature Gran % 0.3 Neutrophils % 76.1 Lymphocytes % 14.1 Monocytes % 6.9 Eosinophils % 2.2 Basophils % 0.4 Nucleated RBC % (0.0-0.3) % 0.0 Absolute Neutrophils (1.2-6.7) 10^3/uL 5.81 Absolute Lymphocytes (1.2-3.4) 10^3/uL 1.08 L Absolute Monocytes (0.1-0.8) 10^3/uL 0.53 Absolute Eosinophils (0.0-0.7) 10^3/uL 0.17 Absolute Basophils (0.0-0.2) 10^3/uL 0.03 Sodium (136-145) mmol/L 138 Potassium (3.5-5.1) mmol/L 3.7 Chloride (98-107) mmol/L 102 Carbon Dioxide (21.0-32.0) mmol/L 28.7 Anion Gap (3-11) mmol/L 7.3 BUN (7-18) mg/dL 17 Creatinine (0.70-1.30) mg/dL 1.1 Est GFR (CKD-EPI 2020) (mL/min/1.73m2) 90.90 Glucose (74-106) mg/dL 103 Calcium (8.5-10.1) mg/dL 8.4 L Total Bilirubin (0.2-1.0) mg/dL 0.4 AST (15-37) U/L 26 ALT (16-63) U/L 50 Alkaline Phosphatase (46-116) U/L 106 Total Protein (6.4-8.2) g/dL 6.9 Albumin (3.4-5.0) g/dL 3.5 Urine Color (Yellow) Urine Clarity (Clear) Urine pH (5-8) Ur Specific Franklin (1.005-1.025) Urine Protein (Negative) mg/dL Urine Ketones (Negative) mg/dL Urine Blood (Negative) Urine Nitrite (Negative) Urine Bilirubin (Negative) Urine Urobilinogen (Up TO 0.2) EU/dL Ur Leukocyte Esterase (Negative) Urine RBC (0-2) HPF Urine WBC (0-5) HPF Ur Epithelial Cells (Negative) HPF Urine Crystals (Negative) HPF Urine Bacteria (Negative) HPF Urine Casts (Negative) LPF Urine Mucus (Negative) Ur Culture Indicated? Urine Glucose (Negative) mg/dL Lyme Disease Antibody (Negative) Negative COVID-19 Source SARS-CoV-2 (PCR) (Negative) Influenza Type A (PCR) (Negative) Influenza Type B (PCR) (Negative) RSV (PCR) (Negative) Range/Units 04/20/22 04/20/22 18:05 20:08 WBC (4.4-10.8) 10^3/uL RBC (4.36-5.78) 10^6/uL Hgb (13.5-17.5) g/dL Hct (40.0-50.0) % MCV (80-95) fL MCH (27.0-33.0) pg MCHC (32.0-36.0) % RDW (11.8-14.1) % Plt Count (130-400) 10^3/uL MPV (8.0-11.0) fL Immature Gran % Neutrophils % Lymphocytes % Monocytes % Eosinophils % Basophils % Nucleated RBC % (0.0-0.3) % Absolute Neutrophils (1.2-6.7) 10^3/uL Absolute Lymphocytes (1.2-3.4) 10^3/uL Absolute Monocytes (0.1-0.8) 10^3/uL Absolute Eosinophils (0.0-0.7) 10^3/uL Absolute Basophils (0.0-0.2) 10^3/uL Sodium (136-145) mmol/L Potassium (3.5-5.1) mmol/L Chloride (98-107) mmol/L Carbon Dioxide (21.0-32.0) mmol/L Anion Gap (3-11) mmol/L BUN (7-18) mg/dL Creatinine (0.70-1.30) mg/dL Est GFR (CKD-EPI 2020) (mL/min/1.73m2) Glucose (74-106) mg/dL Calcium (8.5-10.1) mg/dL Total Bilirubin (0.2-1.0) mg/dL AST (15-37) U/L ALT (16-63) U/L Alkaline Phosphatase (46-116) U/L Total Protein (6.4-8.2) g/dL Albumin (3.4-5.0) g/dL Urine Color (Yellow) Yellow Urine Clarity (Clear) Sl Cloudy Urine pH (5-8) 6.0 Ur Specific Franklin (1.005-1.025) >= 1.030 H Urine Protein (Negative) mg/dL Trace H Urine Ketones (Negative) mg/dL Negative Urine Blood (Negative) Negative Urine Nitrite (Negative) Negative Urine Bilirubin (Negative) Negative Urine Urobilinogen (Up TO 0.2) EU/dL 0.2 Ur Leukocyte Esterase (Negative) Negative Urine RBC (0-2) HPF Negative Urine WBC (0-5) HPF 0-2 Ur Epithelial Cells (Negative) HPF Few Urine Crystals (Negative) HPF Negative Urine Bacteria (Negative) HPF Few Urine Casts (Negative) LPF Negative Urine Mucus (Negative) Negative Ur Culture Indicated? No Urine Glucose (Negative) mg/dL Negative Lyme Disease Antibody (Negative) COVID-19 Source Nasopharynx SARS-CoV-2 (PCR) (Negative) Negative Influenza Type A (PCR) (Negative) Negative Influenza Type B (PCR) (Negative) Negative RSV (PCR) (Negative) Negative
[2022-04-25 22:51] LABS: Anaplasma phagocytophilum Negative (Negative); B. miyamotoi PCR Negative (Negative); Babesia divergens/MO-1 Negative (Negative); Babesia duncani Negative (Negative); Babesia microti Negative (Negative); Ehrlichia chaffeensis Negative (Negative); Ehrlichia ewingii/canis Negative (Negative); Ehrlichia muris eauclairensis Negative (Negative)
== END 2022-04-20 20:30 | disposition home or self-care (01) ==
PROVIDERS: Emergency Provider Physician Assistant; PCP Nurse Practitioner Family
DX: B34.9 Viral infection, unspecified (principal); Z20.822 Contact with and (suspected) exposure to COVID-19; Z87.891 Personal history of nicotine dependence
CPT/HCPCS: 36415; 80053; 87637; 87798; 96360; 99284; 81003; 81015; 85025; 86618

== ENCOUNTER 2022-08-10 20:39 | Emergency (ER) | payer MEDICAID, SELFPAY ==
--- NOTE | 2022-08-10 20:45 | DI.RAD_ITS ---
Exam(s) XR FOOT RT COMPLETE EXAM: XR FOOT RT COMPLETE CLINICAL HISTORY: Injury, R/O Fracture. TECHNIQUE: 2D digital imaging was performed. Three views. COMPARISON: No exams were available for comparison FINDINGS: BONES: No acute fracture is present. No bony destructive lesion is seen. JOINTS: No dislocation present. SOFT TISSUE: Normal. IMPRESSION: Unremarkable radiographs of the right foot. DATA REPOSITORY: RADIATION DOSE DELIVERED:
[2022-08-10 20:46] VITALS: BP 160/90; PULSE 100; RESP 18; TEMP 37; O2SAT 99
--- NOTE | 2022-08-10 21:05 | W.ED.GENAD ---
Discharge Plan Disposition Patient Disposition: Home Condition: Stable Discharge Details Clinical Impression: Crush injury of right foot Primary Care Provider: Alee Chang ED Provider: Maylin Lambert Home Meds and New Rx's Prescriptions: Continued albuterol sulfate 8.5 GM HFA aerosol inhaler 2 puff Inhalation Q4H PRN omega-3 fatty acids-fish oil [Fish Oil] 360-1,200 mg capsule 2 cap PO DAILY vitamin B complex [Vitamins B Complex] Capsule 1 cap PO DAILY cholecalciferol (vitamin D3) 50 mcg (2,000 unit) capsule 50 mcg PO DAILY cyclobenzaprine 5 mg tablet 5 mg PO QHS acetylcysteine [NAC] 600 mg capsule 600 mg PO DAILY dextroamphetamine-amphetamine [Adderall] 20 mg Tablet 10 - 20 mg PO BID Rx Instructions: 20mg qam 10mg afternoon epinephrine 0.3 mg/0.3 mL auto-injector 0.3 mg IM ONCE Qty: 1 0RF Rx Instructions: as a single dose if needed for impending anaphylaxis colchicine [Colcrys] 0.6 mg tablet 0.6 mg PO DAILY Qty: 30 0RF Discharge Instructions Instructions: Foot Sprain (ED) Additional Instructions: Rest, ice, compression, elevation. Use the crutches weightbearing advance as tolerated. Please take Tylenol or Ibuprofen with food every 4-6 hours as needed for pain and swelling. Follow up with primary care provider in 3-5 days if any worsening. Increase oral fluids. Referrals: Alee Chang [Primary Care Provider] - Return if symptoms worsen Medical Decision Making Medical Records Medical records narrative: 32-year-old male presents to the ER with chief complaint of right foot pain status post hitting it with a hammer at 3:00 this afternoon. No obvious deformity no ecchymosis no significant swelling. He is complaining of lateral foot pain and toe pain. X-rays show no acute bony abnormality. No significant soft tissue swelling. I did discuss results with patient who verbalized understanding. Jordan wrap ordered and crutches. I did offer her a work note which patient declined. Did discuss RICE procedures and Tylenol ibuprofen. This text was generated using [email or web address] system, please disregard any oddities of phrase or misspellings. Imaging Data Radiologic Study: Imaging: X-Ray Radiologist's impression: Imaging protocol: Radiologic exam of the Right foot. Views: 3 or more views. COMPARISON: No relevant prior studies available. FINDINGS: Bones/joints: No acute fracture. No dislocation. Soft tissues: No soft tissue foreign body, gas, or significant swelling. IMPRESSION: 1. No acute fracture or dislocation. 2. No significant soft tissue swelling. No foreign body. Thank you for allowing us to participate in the care of your patient. Dictated and Authenticated by: Chuck Wick MD [facility] General Mode of arrival: ambulatory. Date/Time Provider Initiated Documentation: 08/10/22 20:40. Limitations to Documentation: no limitations. Information obtained by: patient, RN notes reviewed and old records reviewed. HPI Narrative: 32-year-old male presents to the ER with chief complaint of right foot pain status post hitting his foot with a 2 pound hammer approximately 3 PM this afternoon. Patient was able to ambulate on foot with the shoe on. Upon taking his shoe off he had increased pain. He is complaining of dorsum of his foot hurting, and lateral foot pain. No obvious deformity no ecchymosis distal CMS is intact. No ankle pain. Did not take any Tylenol or ibuprofen prior to arrival. Past medical history includes hypertension, pericarditis, gout, migraines, restless leg syndrome mild intermittent asthma. Related Data Home Medications Medication Instructions Recorded Confirmed albuterol sulfate 90 mcg/actuation 2 puff inhalation Q4H PRN 09/08/13 08/10/22 aerosol inhaler dextroamphetamine-amphetamine 20 10 - 20 mg PO BID 09/26/18 08/10/22 mg tablet (Adderall) colchicine 0.6 mg tablet (Colcrys) 0.6 mg PO DAILY #30 tabs 09/23/19 08/10/22 epinephrine 0.3 mg/0.3 mL 0.3 mg (0.3 mL) IM ONCE #1 ea 03/14/20 08/10/22 injection, auto-injector acetylcysteine 600 mg capsule (NAC) 600 mg PO DAILY 07/17/22 08/10/22 cholecalciferol (vitamin D3) 50 50 mcg PO DAILY 07/17/22 08/10/22 mcg (2,000 unit) capsule cyclobenzaprine 5 mg tablet 5 mg PO QHS 07/17/22 08/10/22 omega-3 fatty acids-fish oil 360 2 cap PO DAILY 07/17/22 08/10/22 mg-1,200 mg capsule (Fish Oil) vitamin B complex (Vitamins B 1 cap PO DAILY 07/17/22 08/10/22 Complex capsule) Previous Rx's Medication Instructions Recorded colchicine 0.6 mg tablet (Colcrys) 0.6 mg PO DAILY #30 tabs 09/23/19 epinephrine 0.3 mg/0.3 mL 0.3 mg (0.3 mL) IM ONCE #1 ea 03/14/20 injection, auto-injector Allergies Allergy/AdvReac Type Severity Reaction Status Date / Time lisinopril Allergy Severe Anaphylaxsi Unverified 03/14/20 19:52 s shellfish derived Allergy Severe throat Unverified 03/14/20 19:52 swelling bee venom protein (honey bee) Allergy Swelling/Ed Unverified 04/20/22 17:15 stephanie dust/mold Allergy Mild Wheezing Uncoded 03/14/20 19:52 General Stated Complaint: Orthopedic MONY: 3 Review of Systems All systems reviewed & are unremarkable except as noted in HPI and below PFSH All Active Problems (Updated 08/10/22 @ 22:15 by Maylin Lambert NP) Crush injury of right foot (Acute) Hypertension (Chronic) Chest pain (Acute) Pericarditis (Acute) Medical History ADD (attention deficit disorder) Alcohol abuse, in remission Asthma, mild intermittent Back pain Bee sting allergy COVID-19 Ear pain Epididymitis Fatigue Hx of prostatitis Influenza Lymphadenopathy Medication monitoring encounter Migraines Nasal obstruction Nightmare disorder PTSD (post-traumatic stress disorder) Restless legs Seasonal allergies Shellfish allergy Skin lesions Sleep disturbance Unresolved grief Unspecified dislocation of left knee, sequela Social History Smoking/Tobacco Use Status: Former Tobacco Use Smoking risk assessment performed?: Yes Alcohol Intake: never Drug use: Occasionally Substance use type: marijuana Do you feel safe at home: Yes Do you feel safe in your relationship?: Yes Exam Extrem Right lower extremity: ankle Details: normal to inspection and foot Details: normal capillary refill, normal to inspection, tenderness Location: of the dorsal foot and of the lateral foot and no edema; no foreign bodies Course Vital Signs Vital signs: Vital Signs Temperature 37 C 08/10/22 20:46 Pulse 100 H 08/10/22 20:46 Respiratory Rate 18 08/10/22 20:46 Blood Pressure 160/90 H 08/10/22 20:46 Pulse Oximetry 99 08/10/22 20:46 Temperature 37 C 08/10/22 20:46 Temperature Source Oral 08/10/22 20:46 Pulse 100 H 08/10/22 20:46 Respiratory Rate 18 08/10/22 20:46 Respiratory Effort 08/10/22 20:51 Blood Pressure 160/90 H 08/10/22 20:46 Pulse Oximetry 99 08/10/22 20:46 Oxygen Delivery Method Room Air 08/10/22 20:46 Oxygen Flow Rate 0 08/10/22 20:46 Pain Level 8 08/10/22 20:46 Comment 08/10/22 20:46
[2022-08-10] MEDS: Ibuprofen 600 MG TAB PO (21:19)
--- NOTE | 2022-08-10 21:59 | DI.VRAD_ITS ---
PROCEDURE INFORMATION: Exam: XR Right Foot Exam date and time: 08/10/2022 9:24 PM Age: 32 years old Clinical indication: Injury or trauma; Other: Hit with hammer; Other: R/O fracture; Injury date: 08/10/2022 TECHNIQUE: Imaging protocol: Radiologic exam of the Right foot. Views: 3 or more views. COMPARISON: No relevant prior studies available. FINDINGS: Bones/joints: No acute fracture. No dislocation. Soft tissues: No soft tissue foreign body, gas, or significant swelling. IMPRESSION: 1. No acute fracture or dislocation. 2. No significant soft tissue swelling. No foreign body. Dictated and Authenticated by: Chuck Wick MD. Ordering:DYLAN Carlisle MD
== END 2022-08-10 22:24 | disposition home or self-care (01) ==
PROVIDERS: Emergency Provider Registered Nurse Emergency; PCP Nurse Practitioner Family
DX: S97.81XA Crushing injury of right foot, initial encounter (principal); J45.909 Unspecified asthma, uncomplicated; Z86.16 Personal history of COVID-19; W22.8XXA Striking against or struck by other objects, initial encounter
CPT/HCPCS: 99283; 73630; 99282

== ENCOUNTER 2023-02-22 00:31 | Outpatient (CLI) | payer MEDICAID, SELFPAY ==
--- NOTE | 2023-02-22 | DI.RAD_ITS ---
Exam(s) XR THORACIC SPINE COMPLETE EXAM: XR THORACIC SPINE COMPLETE CLINICAL HISTORY: THORACIC BACK PAIN, M54.9. TECHNIQUE: 2D digital imaging was performed. COMPARISON: No exams were available for comparison FINDINGS: 3 views No evidence of fracture nor listhesis nor disc space narrowing. No abnormal widening of the paraspin al lines. No osseous lesions. Bone density normal. IMPRESSION: No significant osseous findings. DATA REPOSITORY: RADIATION DOSE DELIVERED:
== END 2023-02-22 00:51 ==
LOC: DI 00:31
PROVIDERS: PCP Nurse Practitioner Family; Visit Provider Nurse Practitioner Family
DX: M54.9 Dorsalgia, unspecified (principal)
CPT/HCPCS: 72072

== ENCOUNTER 2023-04-07 17:26 | Emergency (ER) | payer MEDICAID, SELFPAY ==
[2023-04-07 17:28] VITALS: BP 146/107; PULSE 111; RESP 18; TEMP 37.1; O2SAT 100
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
[2023-04-07] MEDS: Tetanus & Diphtheria Tox,ADULT 0.5 ML VIAL IM (18:15)
== END 2023-04-07 19:50 | disposition home or self-care (01) ==
PROVIDERS: Emergency Provider Student in an Organized Health Care Education/Training Program; PCP Nurse Practitioner Family
DX: S61.214A Laceration without foreign body of right ring finger without damage to nail, initial encounter (principal); W26.0XXA Contact with knife, initial encounter
CPT/HCPCS: 12001; 90471

== ENCOUNTER 2023-04-09 19:12 | Emergency (ER) | payer MEDICAID, SELFPAY ==
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
--- NOTE | 2023-04-09 19:15 | DI.CT_ITS ---
Exam(s) CT CHEST/ABD/PEL W CT THORACIC LUMBAR SPINE REC EXAM: CT CHEST/ABD/PEL W CLINICAL HISTORY: right sided chest and abdomen pain. TECHNIQUE: Imaging Protocol: Axial computed tomography images with coronal and sagittal reformatted images were created and reviewed. Additional axial, coronal and sagittal sequences of the thoracic and lumbar spine were reconstructed from the chest abdomen pelvic CT using bone algorithm. CONTRAST MATERIAL: Intravenous: Omnipaque 350 Contrast volume:100 ml Oral: no COMPARISON: CT CT THORACIC LUMBAR SPINE REC from 04/09/2023 FINDINGS: CHEST: Tracheobronchial tree: Patent where visualized. Pulmonary parenchyma: No consolidation or dominant measurable mass. Pleura: No effusion or pneumothorax. Lymph nodes: Within normal limits. Aorta: Thoracic portion non-dilated. Heart: Bones/thoracic spine: Unremarkable for age. No lytic or blastic lesions.No compression fractures. R ib fractures identified. Shoulders appear intact as visualized. ABDOMEN: Liver: Normal density. No measurable mass. Gallbladder and biliary tract: No radiodense calculus or dilation. Pancreas: Normal density, no abnormal calcifications or inflammatory process. Spleen: Normal. Kidneys: Normal size, contour and axis. No radiodense stones or obstructive uropathy. No suspicious m asses seen. Adrenal glands: No masses seen. Aorta: Abdominal portion non-dilated. Lymph nodes: Within normal limits. Soft tissues: Unremarkable. PELVIS: Bladder: Symmetric distention, no gross wall thickening. Bowel: No obstruction or bowel wall thickening. Peritoneal cavity: No ascites, collection or mesenteric inflammatory response. Bones/lumbar spine: Unremarkable for age.. No evidence of pelvic or spine fracture. Reproductive organs: Within normal limits. IMPRESSION: No acute abnormality in the chest, abdomen or pelvis.. Unremarkable CT of the thoracic and lumbar spine. RADIATION DOSE DELIVERED: 1218.02 mGy.cm Total DLP DATA REPOSITORY: All CT scans at this facility are submitted to the National Radiology Data Registry (NRDR) Dose Index Registry (DIR) with the [employer] (ACR). RADIATION OPTIMIZATION: All CT scans at this facility use at least one of these dose optimization te chniques: automated exposure control; mA and/or kV adjustment per patient size (includes targeted exa ms where dose is matched to clinical indication); or iterative reconstruction.
[2023-04-09 19:16] VITALS: BP 158/102; PULSE 117; RESP 22; TEMP 37.3; O2SAT 99
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
[2023-04-09 19:57] LABS: Abs Immature Grans 0.03 10^3/uL (0.0-0.06); Absolute Basophil Count 0.04 10^3/uL (0.0-0.2); Absolute Eosinophil Count 0.24 10^3/uL (0.0-0.7); Absolute Lymphocyte Count 1.52 10^3/uL (1.2-3.4); Absolute Monocyte Count 0.77 10^3/uL (0.1-0.8); Absolute Neutrophil Count 6.34 10^3/uL (1.2-6.7); Basophils % 0.4; Eosinophils % 2.7; HCT 46.3 % (40.0-50.0); HGB 16.3 g/dL (13.5-17.5); Immature Grans % 0.3; MCH 30.6 pg (27.0-33.0); MCHC 35.2 % (32.0-36.0); MCV 87 fL (80-95); MPV 9.6 fL (8.0-11.0); Monocytes % 8.6; Platelet Count 329 10^3/uL (130-400); RBC 5.33 10^6/uL (4.36-5.78); RDW 11.9 % (11.8-14.1); RDW-SD 37.5 fL; WBC 8.94 10^3/uL (4.4-10.8)
[2023-04-09] MEDS: Omnipaque 350 MG/ML 100 ML BTL IJ (20:13)
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
[2023-04-09 20:33] LABS: ALT 58 U/L (16-63); AST 28 U/L (15-37); Albumin 4.3 g/dL (3.4-5.0); Alkaline Phosphatase 113 U/L (46-116); Anion Gap 10.3 mmol/L (3-11); BUN 19 mg/dL (7-18); Bilirubin, Total 0.5 mg/dL (0.2-1.0); CO2 27.7 mmol/L (21.0-32.0); CREATININE 1.3 mg/dL (0.70-1.30); Calcium 9.2 mg/dL (8.5-10.1); Chloride 103 mmol/L (98-107); Estimated GFR 73.93 (mL/min/1.73m2); Glucose 83 mg/dL (74-106); Magnesium 2.2 mg/dL (1.8-2.4); Potassium 3.7 mmol/L (3.5-5.1); Sodium 141 mmol/L (136-145); Total Protein 7.9 g/dL (6.4-8.2)
[2023-04-09] MEDS: ACETAMINOPHEN 1,000 MG/100 ML BTL 400 MG IVPB (20:43)
[2023-04-09] MEDS: Normal Saline 1,000 ML 1000 ML IV (20:44)
--- NOTE | 2023-04-09 20:57 | DI.VRAD_ITS ---
PROCEDURE INFORMATION: Exam: XR Right Shoulder Exam date and time: 04/09/2023 8:31 PM Age: 32 years old Clinical indication: Other: Pain TECHNIQUE: Imaging protocol: Radiologic exam of the right shoulder. Views: 2 or more views. COMPARISON: CT CHEST/ABD/PEL W 04/09/2023 8:13 PM FINDINGS: Bones/joints: Normal. Soft tissues: Normal. IMPRESSION: No acute findings. Dictated and Authenticated by: Michel Chow MD. Ordering:ANUM Donahue MD
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
--- NOTE | 2023-04-09 21:09 | DI.VRAD_ITS ---
PROCEDURE INFORMATION: Exam: CT Thoracic Spine Without Contrast Exam date and time: 04/09/2023 8:13 PM Age: 32 years old Clinical indication: Other: T and L spine recons, pain TECHNIQUE: Imaging protocol: Computed tomography of the thoracic spine without contrast. Radiation optimization: All CT scans at this facility use at least one of these dose optimization techniques: automated exposure control; mA and/or kV adjustment per patient size (includes targeted exams where dose is matched to clinical indication); or iterative reconstruction. COMPARISON: CR XR THORACIC SPINE COMPLETE 02/22/2023 9:33 AM FINDINGS: Bones/joints: No acute fracture. Normal alignment. No significant disc bulge or herniation. No severe spinal canal stenosis. No significant neural foraminal narrowing. Soft tissues: Unremarkable. IMPRESSION: Unremarkable CT Spine. PROCEDURE INFORMATION: Exam: CT Lumbar Spine Without Contrast Exam date and time: 04/09/2023 8:13 PM Age: 32 years old Clinical indication: Other: T and L spine recons, pain TECHNIQUE: Imaging protocol: Computed tomography of the lumbar spine without contrast. Radiation optimization: All CT scans at this facility use at least one of these dose optimization techniques: automated exposure control; mA and/or kV adjustment per patient size (includes targeted exams where dose is matched to clinical indication); or iterative reconstruction. COMPARISON: CR XR THORACIC SPINE COMPLETE 02/22/2023 9:33 AM FINDINGS: Bones/joints: No acute fracture. Normal alignment. No significant disc bulge or herniation. No severe spinal canal stenosis. No significant neural foraminal narrowing. Soft tissues: Unremarkable. IMPRESSION: No acute findings. Dictated and Authenticated by: Michel Chow MD. Ordering:ANUM Donahue MD
[2023-04-09] MEDS: MORPHine 4 MG/ML SYR IVP (21:19)
[2023-04-09] MEDS: Lidocaine 5% Patch 2 PATCH TP (21:20)
== END 2023-04-09 21:33 | disposition home or self-care (01) ==
PROVIDERS: Emergency Medicine; Emergency Provider Student in an Organized Health Care Education/Training Program; PCP Nurse Practitioner Family
DX: S49.91XA Unspecified injury of right shoulder and upper arm, initial encounter (principal); S29.9XXA Unspecified injury of thorax, initial encounter; S39.91XA Unspecified injury of abdomen, initial encounter; M54.2 Cervicalgia; W20.8XXA Other cause of strike by thrown, projected or falling object, initial encounter; I10 Essential (primary) hypertension; Z87.891 Personal history of nicotine dependence
CPT/HCPCS: 74177; 80053; 96365; 96375; 99285; 70450; 71260; 72125; 73030; 83735; 85025; 99284; J0131; J2270; J3490

== ENCOUNTER 2024-02-07 09:27 | Day surgery (SDC) | payer MEDICAID, SELFPAY ==
--- NOTE | 2024-02-06 21:31 | W.PM.DSUDISC ---
Date of service: 02/07/24 Time of Service: 12:01 Discharge Plan Disposition Patient Disposition: Home Condition: Good Discharge Details Reason For Visit: Diagnostic colonoscopy Attending Provider: Yuri Vigil Primary Care Provider: Alee Chang Home Meds and New Rx's Prescriptions: Continued albuterol sulfate 8.5 GM HFA aerosol inhaler 2 puff Inhalation Q4H PRN cyclobenzaprine 5 mg tablet 5 mg PO PRN PRN dextroamphetamine-amphetamine [Adderall] 20 mg Tablet 10 - 20 mg PO BID Rx Instructions: 20mg qam 10mg afternoon epinephrine 0.3 mg/0.3 mL auto-injector 0.3 mg IM ONCE Qty: 1 0RF Rx Instructions: as a single dose if needed for impending anaphylaxis Discontinued polyethylene glycol 3350 17 gram/dose powder 238 g PO ONCE Qty: 238 0RF Rx Instructions: take per colonoscopy instructions bisacodyl [Dulcolax (bisacodyl)] 5 mg tablet,delayed release (DR/EC) 5 mg PO ONCE Qty: 4 0RF Rx Instructions: take per colonoscopy instructions Discharge Instructions Additional Instructions: Vargas, we are able to complete your colonoscopy today without any difficulty. Your prep was excellent. You do have diverticulosis, it extends from about 20 cm up from your anus to about 40 cm up from your anus. And while there are some diverticula after this, they are quite sparse. In that regards, you have a very classic distribution of diverticulosis. You may hear people referred to it is sigmoid diverticulosis, as that is the part of the colon where it is occurring. He did have a little bit of inflammation in your rectum as well. This can sometimes be caused by the bowel prep, but to be safe, I did several biopsies of this to make sure it is not something else like ulcerative colitis. He also had 1 polyp, which I removed today. I want to see what all the results of the biopsies and the polyp report are before we make any other decisions. Like we talked about, the more that you can manage diverticulosis with diet and lifestyle changes, the better off he would be. However, if you really continue experiencing refractory symptoms, then I think you be a good candidate for resection of that segment. Once I have the results of all the biopsies of the polyp report, I will be in touch. If you have any questions in the meantime, please do not hesitate to ask. 1. If tolerated, consume a soft, low fiber diet for 1-2 days. [address] Do not drive, drink alcohol, operate machinery, make critical decisions, or do activities that require coordination or balance for 24 hours. 3. Because air was put into your colon during the procedure, expelling air from your rectum (passing gas or farting) is normal. 4. You may not have a bowel movement for 1-3 days because of the colonoscopy prep. This is normal. 5. Go directly to the emergency room if you notice any of the following: Develop chills (warm to touch), or if you have a thermometer and your temperature is above 101 Difficulty breathing or difficultly swallowing Persistent vomiting Severe abdominal pain, other than gas cramps Severe chest pain Black, tarry stools Any bleeding ? exceeding one tablespoon 6. Call your physician if the site where your intravenous was started becomes red, swollen, painful, and warm to touch. 7. Your physician has reviewed your pre-procedure medications. Please continue to take those medications as previously ordered. You will be given specific information/education regarding any changes to your medications before leaving. Activity:: Activity as Tolerated Diet:: As Tolerated Discharge Orders Discharge Orders: Discharge Order (Routine); Ordered 02/06/24 Ordered By: Yuri Vigil DS: Diagnosis Discharge Diagnosis (1) Diverticulosis: Status: Acute Asessment and Plan: Follow-up on biopsy results
--- NOTE | 2024-02-06 21:33 | COLE_ITS ---
Date of service: 02/07/24 Time of Service: 12:03 Colonoscopy Report Date of procedure: 02/07/24 Pre-op diagnosis general: Diverticulosis Post-op diagnosis procedure note: other (Diverticulosis, colon polyp, mild proctitis) Procedure: colonoscopy Surgeon: Yuri Vigil Anesthesia Type: General:No Airway Estimated blood loss (mL): 5 Pathology: other (0. 5 cm pedunculated polyp at 35 cm; random rectal biopsies) Complications: None Disposition: same day Indications: Vargas is a 33 year old man with a history of diverticulitis. He needs a diagnostic colonoscopy Prep: Miralax/Dulcolax Procedure Start Time: 11:36 Procedure End Time: 11:52 Retraction Time: 11 Findings: Sigmoid diverticulosis extending from about 20 cm beyond the anus to about 40 cm beyond the anus. 0.5 cm pedunculated polyp at 35 cm, mild proctitis Procedure Description: After the induction of anesthesia, and with the patient in left lateral decubitus position, I began by performing an external anorectal exam.? Perineum and skin were normal, as was the anal verge.? There was no evidence of external hemorrhoids.? Next, I performed a digital rectal exam.? I did not appreciate any abnormal findings.? Next, I advanced a colonoscope into the rectal vault.? I performed retroflexion.? Upper anal column is normal. There was a little bit of inflammation in the distal rectal vault that seem consistent with some mild proctitis.? Using insufflation, I then advanced the colonoscope beyond the rectal folds and into the sigmoid colon before advancing towards the cecum.? The quality of the prep was excellent.? The scope was noted to be in the cecum by identification of the ileocecal valve and appendiceal orifice.? I then began withdrawing the colonoscope using repeated irrigation as necessary for full evaluation of the colonic mucosa. There were just a few scattered diverticula in the ascending colon. I did not appreciate any in the transverse, or proximal descending colon. Concentration of diverticula increased around 40 cm from the anus, was fairly constant down to about 20 cm beyond the anus. Majority of the diverticula were narrow mouth. At 35 cm from the anus was a polyp. It was mildly erythematous, and pedunculated. This was retrieved with cold snare polypectomy. There was minimal bleeding. Once the scope was withdrawn to the level of the rectum, great care was taken to examine portions of the rectal folds.? Given the mild proctitis, I did perform some cold forceps random biopsies of the affected area and surrounding tissues. Finally, the scope was withdrawn and the patient was brought to the same-day surgery recovery unit as the anesthetic wore off. ?The findings and instructions were shared with the patient prior to discharge. [place] Bowel Prep [place] Bowel Prep Right Colon: 3 Left Colon: 3 Transverse Colon: 3 Total Score: 9
[2024-02-07 09:53] VITALS: BP 122/85; PULSE 61; RESP 16; TEMP 36.3; O2SAT 99
[2024-02-07] MEDS: Lactated Ringers 1,000 ML 80 ML IV (09:56)
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
[2024-02-07 11:00] VITALS: BMI 24.8
--- NOTE | 2024-02-07 11:50 | BOWEL_PTH ---
PATIENT: Vargas Shen LOC: [facility] U#:[id number] AGE/SX: 33/M ROOM: RE02/07/[address]: Yuri Vigil MD : 1990 BED: DIS: 02/07/2024 SPEC #: [id number] RECD: 02/07/24 13:14 STATUS: CARLOS RE #: [id number] STEFFI: 02/07/24 11:[address]: Yuri Vigil DEPT: Surgical Specimen RECD BY: Nolvia Ramírez ENTERED: 02/07/24 13:15 SP TYPE: Bowel OTHR DR: Alee Chang Tissues: 1 - BIOPSY BOWEL 2 - BIOPSY BOWEL Procedures: GROSS AND MICRO LEVEL 4 Comments: [id number]
[2024-02-07 11:59] VITALS: BP 115/70; PULSE 70; RESP 16; TEMP 36.5; O2SAT 100
[2024-02-07 12:27] VITALS: BP 131/98; PULSE 55; RESP 16; TEMP 36.4; O2SAT 100
--- NOTE | 2024-02-07 12:30 | W.ANESPOSTOP ---
Postoperative Evaluation Date, Time and Location Date Performed: 02/07/24 Time Performed: 12:09 Patient Location: Day Surgery Unit Vital Signs Most Recent Imported Vital Signs: Most Recent Vital Signs Temp Pulse Resp BP Pulse Ox 36.5 C 70 16 115/70 100 02/07/24 11:59 02/07/24 11:59 02/07/24 11:59 02/07/24 11:59 02/07/24 11:59 Pain Score Most Recent Pain Score: Most Recent Pain Score Pain Level 0 02/07/24 11:59 Assessment Mental Status: Awake (Alert & Oriented to Patient Baseline) Airway and Respiratory Function: Patent airway with normal (patient baseline) respiratory exam Cardiovascular Function: Hemodynamically Stable Hydration Status: Adequately Hydrated Nausea & Vomiting: No Nausea or Vomiting Pain: Pt. Denies Any Pain Peripheral Nerve Block: Patient did not receive a nerve block
== END 2024-02-07 12:50 | disposition home or self-care (01) ==
LOC: SUR 09:28
PROVIDERS: PCP Nurse Practitioner Family; Visit Provider Surgery
PROC: 0DJD8ZZ Inspection of Lower Intestinal Tract, Via Natural or Artificial Opening Endoscopic (ICD-10-PCS; CPT 45378; principal; 2024-02-07 11:30)
DX: K57.30 Diverticulosis of large intestine without perforation or abscess without bleeding (principal); K62.89 Other specified diseases of anus and rectum; K63.5 Polyp of colon; K63.89 Other specified diseases of intestine
CPT/HCPCS: 45380; 88305; J2001; J2704

== ENCOUNTER 2024-11-03 06:11 | Inpatient (IN) | payer MEDICAID, SELFPAY ==
--- NOTE | 2024-11-02 14:38 | W.ANESPRE ---
General Info Date of Service Date Performed: 11/03/24 Height: 5 ft 4 in Weight: 69.059 kg Body Mass Index (BMI): 26.1 Surgical Procedure: Operation Date: 11/03/24 07:50 Proposed Procedure Side Surgeon p Sigmoid Colectomy Laparoscopic Yuri Vigil MD Meds Allergies and Home Medications Allergies Allergy/AdvReac Type Severity Reaction Status Date / Time lisinopril Allergy Severe Anaphylaxsi Verified 11/03/24 06:18 s shellfish derived Allergy Severe throat Verified 11/03/24 06:18 swelling sulfamethoxazole (From Allergy Severe Hives Verified 11/03/24 06:18 Bactrim) trimethoprim (From Bactrim) Allergy Severe Hives Verified 11/03/24 06:18 bee venom protein (honey bee) Allergy Swelling/Ed Verified 11/03/24 06:18 stephanie cat dander Allergy Wheezing Verified 11/03/24 06:18 dog dander Allergy Itching Verified 11/03/24 06:18 dust/mold Allergy Mild Wheezing Uncoded 11/03/24 06:18 Home Medication ?Medication ?Instructions ?Recorded albuterol sulfate 90 mcg/actuation 2 puff inhalation Q4H PRN 09/08/13 aerosol inhaler dextroamphetamine-amphetamine 20 10 - 20 mg PO BID 09/26/18 mg tablet (Adderall) epinephrine 0.3 mg/0.3 mL 0.3 mg (0.3 mL) IM ONCE #1 ea 03/14/20 injection, auto-injector cyclobenzaprine 5 mg tablet 5 mg PO PRN PRN 07/17/22 bisacodyl 5 mg tablet,delayed 5 mg PO ONCE Colonoscopy Bowel 09/29/24 release Prep #8 tabs metronidazole 500 mg tablet 500 mg PO ONCE #8 tabs 09/29/24 neomycin 500 mg tablet 500 mg PO ONCE #8 tabs 09/29/24 ondansetron 8 mg disintegrating 8 mg PO ONCE #3 tabs 09/29/24 tablet polyethylene glycol 3350 17 238 g PO ONCE #238 grams 09/29/24 gram/dose oral powder Current Visit Medications: Current Medications Generic Name Dose Route Start Last Admin Trade Name Freq PRN Reason Stop Dose Admin Acetaminophen 1,000 mg 11/03/24 06:00 Acetaminophen 500 Mg Tab PO 11/03/24 23:59 PREOP SERENITY Celecoxib 200 mg 11/03/24 06:00 Celecoxib 200 Mg Cap PO 11/03/24 23:59 PREOP SERENITY Gabapentin 600 mg 11/03/24 06:00 Gabapentin 300 Mg Cap PO 11/03/24 23:59 PREOP SERENITY Heparin Sodium (Porcine) 5,000 units 11/03/24 06:00 Heparin 5,000 Units/Ml Vial SC 11/03/24 23:59 POLICE SERGEANT PRECINCT SERENITY Ringer's Solution 1,000 mls @ 80 mls/hr 11/03/24 06:00 IV 11/03/24 23:59 INFUSION SERENITY Cefazolin Sodium/Dextrose 2 gm in 50 mls @ 100 mls/hr 11/03/24 06:00 Ancef Duplex IVPB 11/03/24 23:59 PREOP SERENITY IV Miscellaneous Supplies 1 each 11/03/24 06:00 Iv Access IV 11/03/24 23:59 DIRECTED SERENITY Sodium Chloride 0 ml 11/03/24 06:00 Normal Saline Flush 10 Ml Syr IV 11/03/24 23:59 PRN PRN Sodium Chloride 0 ml 11/03/24 06:00 Normal Saline 10 Ml Vial IJ 11/03/24 23:59 DIRECTED PRN Sterile Water 0 ml 11/03/24 06:00 Water,Injection,Sterile 10 Ml Vial IJ 11/03/24 23:59 DIRECTED PRN PFSH Active Problems Active Problems: Problem Status Onset Code Diverticulosis Acute K57.90 Celiac disease Acute K90.0 Sensorineural hearing loss (SNHL) of both ears Acute H90.3 Tinnitus of both ears Acute H93.13 Nasal congestion Acute R09.81 Pericarditis Acute I31.9 Chest pain Acute R07.9 Hypertension Chronic I10 Medical History Medical History (Updated 11/02/24 @ 11:55 by Juan Jose Gonzalez) Diverticulitis (~11/2022) Hx of prostatitis Epididymitis Asthma, mild intermittent ADD (attention deficit disorder) Unspecified dislocation of left knee, sequela Nightmare disorder PTSD (post-traumatic stress disorder) Pt. states no potential triggers Unresolved grief Alcohol abuse, in remission Sleep disturbance Migraines Influenza Seasonal allergies Shellfish allergy Bee sting allergy Medication monitoring encounter Restless legs Nasal obstruction Back pain Skin lesions Lymphadenopathy Fatigue Ear pain COVID-19 Surgical History Surgical History History of colonoscopy (~01/2024) History of surgery on wrist Hx of wisdom tooth extraction Hx of tonsillectomy Tobacco Smoking/Tobacco Use Status: Former Tobacco Use Passive smoking exposure: No Alcohol Alcohol Intake: former Substance Use Substance use: Occasionally Substance use type: marijuana Details: edibles Vital Signs and Lab Results Vital Signs Most Recent Vital Signs in EMR: Temp Pulse Resp BP Pulse Ox 36.7 C 71 18 138/90 100 11/03/24 06:21 11/03/24 06:21 11/03/24 06:21 11/03/24 06:21 11/03/24 06:21 Lab Results Blood Type / Crossmatch: No Data to Display Complete Blood Count: No Data to Display Complete Metabolic Panel: No Data to Display Liver Function Panel: No Data to Display Coagulation Panel: No Data to Display Cardiac Panel: No Data to Display Arterial Blood Gas: No Data to Display Venous Blood Gas: No Data to Display Pancreas Panel: No Data to Display Thyroid Panel: No Data to Display Infectious Disease: No Data to Display Blood Cultures: No Data to Display Toxicology Panel: No Data to Display Anesthesia Assessment and Plan Anesthesia History Personal History: Delayed Emergence Family History: No Family History of Anesthesia Complications Exercise Tolerance Exercise Tolerance: Metabolic Equivalents>4 Cardiac & Pulmonary Exam Cardiac Exam: Normal S1/S2 Heart Sounds Pulmonary Exam: Clear Bilateral Breath Sounds Implantable Cardiac Device Does patient have a Pacemaker or an ICD?: No Airway Exam Known Difficult Airway: No Mallampati Class: 3 Mouth Opening: Normal (> 3cm) Thyromental Distance: Greater than 3 cm Neck Range of Motion: Full ROM Neck Circumference: Normal Teeth Condition: Normal Dentition ASA Classification ASA Score: ASA 2 Emergency Case?: No NPO Status NPO Status: NPO Clears >2 hours, Solids >8 hours Anesthesia Plan Resuscitation Status: Full Code Anesthesia Technique: General Anesthesia Airway Planned: Endotracheal Tube Monitors Used: Standard Monitors Preoperative Comments:: 34 yo male with recurrent diverticulitis for laparoscopic sigmoid colectomy. Sig PMHx: HTN (no meds), asthma (albuterol - rare use), ADD, PTSD. former smoker, occ EtOH/cannabis. Previous Anes: - colo, prop, natural airway, no issues.
--- NOTE | 2024-11-02 15:35 | HPE_ITS ---
Assessment and Plan Assessment and plan (1) Diverticulosis: Status: Acute Assessment and plan: We reviewed the plan for laparoscopic sigmoid colectomy today. Vargas was provided the opportunity to ask any other new questions that he has. He affirms the informed consent that he signed in the office, and were fine to proceed with sigmoid colectomy as planned. History of Present Illness History of Present Illness Chief Complaint: Sigmoid diverticulosis Narrative: Vargas is 34 years old. Over the past year, has had multiple episodes of recurrent diverticulitis. This is required several rounds of outpatient antibiotic therapy, and despite significant changes in his diet health regimen, he continues to suffer symptoms of waxing and waning debilitating left lower quadrant pain. His left significant impact on his ability to work, and enjoy his activities of daily living. He did undergo colonoscopy that confirmed the presence of diverticulosis with granulation inflammatory changes extending from about 20 to 35 cm beyond the anus. There were no features raising any concern for inflammatory bowel disease such as ulcerative colitis or Crohn's disease. After extensive discussion regarding medical management of his diverticulosis versus sigmoid colectomy for definitive treatment. He prefers sigmoid colect jamshid. PFSH All Active Problems Diverticulosis (Acute) Celiac disease (Acute) Sensorineural hearing loss (SNHL) of both ears (Acute) Tinnitus of both ears (Acute) Nasal congestion (Acute) Pericarditis (Acute) Chest pain (Acute) Hypertension (Chronic) Medical History Diverticulitis (~11/2022) Hx of prostatitis Epididymitis Asthma, mild intermittent ADD (attention deficit disorder) Unspecified dislocation of left knee, sequela Nightmare disorder PTSD (post-traumatic stress disorder) Pt. states no potential triggers Unresolved grief Alcohol abuse, in remission Sleep disturbance Migraines Influenza Seasonal allergies Shellfish allergy Bee sting allergy Medication monitoring encounter Restless legs Nasal obstruction Back pain Skin lesions Lymphadenopathy Fatigue Ear pain COVID-19 Surgical History History of colonoscopy (~01/2024) History of surgery on wrist Hx of wisdom tooth extraction Hx of tonsillectomy Social History (Updated 08/15/22 @ 07:49 by Vesna Leonard RN) Smoking/Tobacco Use Status: Former Tobacco Use Quit Date: 08/12/13 Smoking risk assessment performed?: Yes Alcohol Intake: former Drug use: Occasionally Substance use type: marijuana Details: edibles Housing: house Do you feel safe at home: Yes Do you feel safe in your relationship?: Yes Meds Allergies and Home Medications Allergies Allergy/AdvReac Type Severity Reaction Status Date / Time lisinopril Allergy Severe Anaphylaxsi Verified 11/03/24 06:18 s shellfish derived Allergy Severe throat Verified 11/03/24 06:18 swelling sulfamethoxazole (From Allergy Severe Hives Verified 11/03/24 06:18 Bactrim) trimethoprim (From Bactrim) Allergy Severe Hives Verified 11/03/24 06:18 bee venom protein (honey bee) Allergy Swelling/Ed Verified 11/03/24 06:18 stephanie cat dander Allergy Wheezing Verified 11/03/24 06:18 dog dander Allergy Itching Verified 11/03/24 06:18 dust/mold Allergy Mild Wheezing Uncoded 11/03/24 06:18 Home Medications ?Medication ?Instructions ?Recorded ?Confirmed ?Type albuterol sulfate 90 mcg/actuation 2 puff inhalation Q4H PRN 09/08/13 11/02/24 History aerosol inhaler dextroamphetamine-amphetamine 20 10 - 20 mg PO BID 09/26/18 11/02/24 History mg tablet (Adderall) epinephrine 0.3 mg/0.3 mL 0.3 mg (0.3 mL) IM ONCE #1 ea 03/14/20 11/02/24 Rx injection, auto-injector cyclobenzaprine 5 mg tablet 5 mg PO PRN PRN 07/17/22 11/02/24 History bisacodyl 5 mg tablet,delayed 5 mg PO ONCE Colonoscopy Bowel 09/29/24 11/02/24 Rx release Prep #8 tabs metronidazole 500 mg tablet 500 mg PO ONCE #8 tabs 09/29/24 11/02/24 Rx neomycin 500 mg tablet 500 mg PO ONCE #8 tabs 09/29/24 11/02/24 Rx ondansetron 8 mg disintegrating 8 mg PO ONCE #3 tabs 09/29/24 11/03/24 Rx tablet polyethylene glycol 3350 17 238 g PO ONCE #238 grams 09/29/24 11/02/24 Rx gram/dose oral powder Exam Const General: cooperative, healthy appearing and not in acute distress Neck Neck: normal visual inspection, no lymphadenopathy and supple Resp Effort & Inspection: normal respiratory effort Auscultation: clear to auscultation bilaterally Cardio Jugular venous pressure: no JVD Rate: regular rate Rhythm: regular rhythm Heart Sounds: S1 normal and S2 normal GI Inspection: normal to inspection Palpation: soft, no guarding, no hernias and nontender Percussion: normal to percussion Auscultation: normal bowel sounds Neuro General: patient alert, patient awake and patient oriented x3 Psych Appearance: grossly normal
[2024-11-03] VITALS (51 sets, daily range): BP systolic 87–145; BP diastolic 59–90; PULSE 61–97; RESP 11–30; TEMP 36.5–37.4; O2SAT 96–100; BMI 26.1
[2024-11-03] MEDS: Lactated Ringers 1,000 ML 80 ML IV ×2 (06:42→14:00)
[2024-11-03] MEDS: Celecoxib 200 MG CAP PO (06:47)
[2024-11-03] MEDS: Acetaminophen 500 MG TAB 1000 MG PO (06:48)
[2024-11-03] MEDS: Gabapentin 300 MG CAP 600 MG PO (06:48)
[2024-11-03] MEDS: Heparin 5,000 UNITS/ML VIAL 5000 UNITS SC (06:49)
--- NOTE | 2024-11-03 07:37 | NUR.NOTE ---
Patient's sister left the day surgery area with patient's cell phone and wallet in her hand. Clothing and shoes are in patient belonging bags. Yasemin Chavarria RN
[2024-11-03] MEDS: ceFAZolin 2 GM/50 ML BAG IVPB (07:45)
[2024-11-03] MEDS: Bupivacaine LIPOSOME/PF 133 MG/10 ML VIAL IJ (08:21)
[2024-11-03] MEDS: Normal Saline 20 ML VIAL ×2 (08:21→12:47)
[2024-11-03] MEDS: Bupivacaine 0.25% Pres-Free 30 ML VIAL (08:22)
--- NOTE | 2024-11-03 10:45 | BOWEL_PTH ---
PATIENT: Vargas Shen LOC: [facility] Feng#:[id number] AGE/SX: 34/M ROOM: RE11/03/[address]: Yuri Vigil MD : 1990 BED: A DIS: 11/05/2024 SPEC #: [id number] RECD: 11/03/24 12:39 STATUS: CARLOS REQ #: [id number] STEFFI: 11/03/24 10:[address]: Yuri Vigil DEPT: Surgical Specimen RECD BY: Nolvia Ramírez ENTERED: 11/03/24 12:40 SP TYPE: Bowel OTHR DR: Alee Chang Tissues: 1 - BOWEL RESECTION(OTHER) 2 - BIOPSY BOWEL Procedures: GROSS AND MICRO LEVEL 4 GROSS AND MICRO LEVEL 5 Comments: [id number]
--- NOTE | 2024-11-03 11:39 | W.PM.OP ---
Operative Note Operative Note PRE-OP DIAGNOSIS: Chronic diverticulitis POST-OP DIAGNOSIS: same PROCEDURE: Laparoscopic sigmoid colectomy with primary colorectal anastomosis SURGEON: Yuri Vigil GRANITE INSTALLER: Patrick Griggs ANESTHESIA TYPE: Local By Surgeon and General LMA/ETT Refer to Anesthesia Record ESTIMATED BLOOD LOSS: 100 PATHOLOGY: other (Sigmoid colon; anastomotic rings) COMPLICATIONS: None Patient was transported to: PACU Patient's condition: stable Indications: Vargas is a 34-year-old male whose had multiple episodes of recurrent diverticulitis Findings: Chronic diverticulitis Procedure Description: I met with checkup in the preoperative area, we reviewed the plan for surgery. I reviewed the risks and the benefits of the surgery once again, and he had the chance to ask any other questions. We then moved back to the operating room. Vargas was assisted onto the OR table. He was padded and supported appropriately. General endotracheal anesthesia was induced. Lowe urinary catheter was inserted. Next, he was placed in lithotomy positioning, and the left arm was gently tucked. Again, attention was paid to appropriate positioning and pressure points. I then prepped and draped the anterior abdominal wall. I anesthetized the skin around the umbilicus, made a small skin incision. I then established pneumoperitoneum using a 5 mm optical viewing port. Camera was reintroduced, and the underlying viscera was examined. There was no evidence of any trauma from the entry into the peritoneal cavity. I then placed a 5 mm port in the right lower quadrant, as well as a 5 mm port in the suprapubic position. Vargas was placed in some Trendelenburg positioning, and the small intestine was swept up out of the pelvis. The sigmoid colon was gently retracted cephalad, and the medial reflection was incised with the LigaSure. This dissection was carried down into the pelvis along the right side below the level of the confluence of the tenia on the rectum. The dissection was then carried cephalad isolating the CAROL pedicle which was divided with cautery. I stayed well superficial of the retroperitoneum and left ureter. Next, the colon was reflected medially, and the lateral attachments were opened. This dissection was also carried down onto the pelvic floor. Great care was taken along the medial and lateral mobilization of the distal sigmoid in order to avoid any injury to the retroperitoneum. The proximal rectum was skeletonized, and I then carried the dissection laterally up and around the splenic flexure. This did require insertion of another 5 mm port in the left mid abdomen. Once this was fully mobilized, I upsized the 5 mm port in the right lower quadrant to a 12 mm port, and I divided the proximal rectum with 2 fires of an Endo LUIS ALBERTO stapler. Once this was complete, the sigmoid segment was reflected cephalad, and a few more attachments of the mesentery were divided. The 5 mm port in the suprapubic position was then removed, and a transverse incision was made. This was taken down to the anterior rectus fascia which was divided along the length of the incision. The rectus muscles were split to the left and the right, and an Cameron wound protector was placed. The sigmoid colon was delivered up through the wound protector, and then divided above the pathologic appearing sigmoid colon. A few remaining attachments of the mesentery were divided, and the specimen was freed. It was passed off for preservation. Next, the anvil of a 30 mm EEA stapler was introduced into the and descending colon. It was affixed in place with a pursestring 2-0 PDS suture. There was no spillage. This was then dropped back into the peritoneum, and the wound protector cover was placed as pneumoperitoneum was reestablished. The descending colon sat down on the pelvis floor in a tension-free manner, and everything looked excellent for an anastomosis. The EEA stapler was then digital rectal exam was performed and was normal. An EEA stapler was then advanced through the anus into the rectum and up to the rectal stump under direct vision of the laparoscope. The stapler was opened, and the anvil was attached. An EEA anastomosis was then performed according to the manufactures instructions. 2 complete rings were removed, and preserved for pathologic specimen. The pelvis filled with saline solution, and the variable stiffness colonoscope was then introduced into the rectal vault. I advanced the colonoscope up to the anastomosis which was carefully examined. It was widely patent and hemostatic. There was no evidence of any leakage as the rectum and descending colon were insufflated. The colonoscope was removed. After new gowns and gloves were applied, I turned my attention to closure of the port site. The 12 mm port in the right lower quadrant was removed, and a Sebastian Turcios wound closure device was used to close this fascia. The remaining 5 mm ports were removed, and they were hemostatic. Finally, the wound protection device was completely removed. The fascia of the rectus abdominis was then closed with running 2-0 PDS suture. The skin and subcutaneous tissues were irrigated, and some Vicryl sutures were used to reapproximate the deep tissue of the suprapubic incision. Skin was closed at all the sites with a surgical stapler. Bandages were applied, the Lowe catheter was removed, the patient was allowed awaken from anesthesia and transferred to the recovery unit. Date of Procedure: 11/03/24
--- NOTE | 2024-11-03 12:04 | W.ANESPOSTOP ---
Postoperative Evaluation Date, Time and Location Date Performed: 11/03/24 Time Performed: 12:04 Patient Location: PACU Vital Signs Most Recent Imported Vital Signs: Most Recent Vital Signs Temp Pulse Resp BP Pulse Ox 36.7 C 71 18 138/90 100 11/03/24 11:52 11/03/24 06:21 11/03/24 06:21 11/03/24 06:21 11/03/24 06:21 Pain Score Most Recent Pain Score: Most Recent Pain Score Pain Level 5 11/03/24 11:52 Assessment Mental Status: Awake (Alert & Oriented to Patient Baseline) Airway and Respiratory Function: Patent airway with normal (patient baseline) respiratory exam Cardiovascular Function: Hemodynamically Stable Hydration Status: Adequately Hydrated Nausea & Vomiting: No Nausea or Vomiting Pain: Pain is Moderate or Severe Postoperative Pain Management: Pain being addressed with medication Peripheral Nerve Block: Patient did not receive a nerve block
[2024-11-03] MEDS: fentaNYL 100 MCG/2 ML VIAL IVP ×2 (12:06→12:23)
[2024-11-03] MEDS: ACETAMINOPHEN 1,000 MG/100 ML BAG 400 MG IVPB ×2 (12:36→20:09)
[2024-11-03] MEDS: HYDROmorphone 2 MG/ML SYR IVP ×2 (12:47→12:57)
[2024-11-03] MEDS: HYDROmorphone 2 MG/ML SYR 0.5 MG IVP ×3 (13:56→20:07)
[2024-11-03] MEDS: Ketorolac 30 MG/ML VIAL IVP ×2 (17:58→23:48)
[2024-11-03] MEDS: Enoxaparin 40 MG/0.4 ML SYR SC (20:05)
[2024-11-03] MEDS: Normal Saline Flush 10 ML SYR IVP (20:14)
[2024-11-04] MEDS: Normal Saline Flush 10 ML SYR IVP ×7 (00:15→23:55)
[2024-11-04] MEDS: HYDROmorphone 2 MG/ML SYR 0.5 MG IVP ×4 (01:12→19:42)
[2024-11-04] MEDS: ACETAMINOPHEN 1,000 MG/100 ML BAG 400 MG IVPB ×3 (02:30→13:39)
[2024-11-04] MEDS: Lactated Ringers 1,000 ML 75 ML IV (02:30)
[2024-11-04] MEDS: Ketorolac 30 MG/ML VIAL IVP ×4 (06:07→23:53)
[2024-11-04 06:59] LABS: Abs Immature Grans 0.03 10^3/uL (0.0-0.06); Absolute Basophil Count 0.03 10^3/uL (0.0-0.2); Absolute Eosinophil Count 0.03 10^3/uL (0.0-0.7); Absolute Lymphocyte Count 2.01 10^3/uL (1.2-3.4); Absolute Monocyte Count 0.92 10^3/uL (0.1-0.8); Basophils % 0.3 %; Eosinophils % 0.3 %; HCT 40.6 % (40.0-50.0); HGB 14.4 g/dL (13.5-17.5); Immature Grans % 0.3 %; Lymphocytes % 21.3 %; MCH 31.4 pg (27.0-33.0); MCHC 35.5 % (32.0-36.0); MCV 89 fL (80-95); MPV 9.9 fL (8.0-11.0); Monocytes % 9.8 %; Platelet Count 272 10^3/uL (130-400); RBC 4.58 10^6/uL (4.36-5.78); RDW 12.1 % (11.8-14.1); RDW-SD 38.6 fL; WBC 9.42 10^3/uL (4.4-10.8)
[2024-11-04 07:37] VITALS: BP 135/90; PULSE 82; RESP 20; TEMP 36.2; O2SAT 99
--- NOTE | 2024-11-04 07:44 | W.PM.PROGNOT ---
Date of Service Date of service: 11/04/24 Time of Service: 07:44 Assessment and Plan Assessment and plan (1) Diverticulosis: Status: Acute Assessment and plan: POD #1 s/p laproscopic sigmoidcolectomy Tolerating clear liquids Pain is fairly well controlled at this time. increases with mobility, transfers and ambulation Urinating without difficulty Will slowly advance diet as tolerated. Can have a shower later today Encouraged ambulation and sitting in the chair throughout the day Subjective Subjective Interval history since last seen: Arrive with the patient resting in bed. He reports pain control was a little challenging through the night, but otherwise is feeling well. Exam Const General: cooperative, healthy appearing and comfortable Orientation: alert and oriented x3 Resp Effort & Inspection: normal respiratory effort, no audible wheezes and no cough GI Inspection: normal to inspection and incision (dressings in place) Palpation: soft and tender Auscultation: normal bowel sounds Objective Last Vital Signs Temp 36.2 C L 11/04/24 07:37 Pulse 82 11/04/24 07:37 Resp 20 11/04/24 07:37 BP 135/90 11/04/24 07:37 Pulse Ox 99 11/04/24 07:37 Laboratory Results - last 24 hr 11/03/24 11/04/24 07:25 06:05 WBC 9.42 RBC 4.58 Hgb 14.4 Hct 40.6 MCV 89 MCH 31.4 MCHC 35.5 RDW 12.1 Plt Count 272 MPV 9.9 Immature Gran % 0.3 Neutrophils % 68.0 Lymphocytes % 21.3 Monocytes % 9.8 Eosinophils % 0.3 Basophils % 0.3 Nucleated RBC % 0.0 Absolute Neutrophils 6.40 Absolute Lymphocytes 2.01 Absolute Monocytes 0.92 H Absolute Eosinophils 0.03 Absolute Basophils 0.03 ABO/Rh O Negative Antibody Screen NEGATIVE Time Spent with Patient Time Spent with Patient: <25 minutes Time was spent: preparing to see the patient(eg.review tests), obtaining and/or reviewing separately otained hiistory and counseling the patient
--- NOTE | 2024-11-04 07:50 | W.PM.PROGNOT ---
Date of Service Date of service: 11/04/24 Time of Service: 07:50 Assessment and Plan Assessment and plan (1) Status post laparoscopic-assisted sigmoidectomy: Status: Acute Assessment and plan: 34-year-old man postop day 1 from laparoscopic sigmoid resection. He is hemodynamically stable, having good bowel function, tolerating regular food and otherwise doing very well. Grossly benign abdominal exam. No distention. He is still requiring IV Dilaudid for analgesia. Overall plan: Hep-Lock IV fluid Out of bed and ambulate DVT prophylaxis Wean off IV narcotics today Discharged later today or tomorrow Subjective Subjective Interval history since last seen: No overnight events of concern. Passing gas. No nausea or vomiting. Exam Narrative Exam Narrative: Gen: Non-toxic, comfortable and interactive Neuro: Alert and oriented x3 Psych: Good mood and affect. Good insight and understanding into condition. Chest: Non-labored breathing, no wheezing, no visible shortness of breath. Heart: Regular Abdomen: Soft, expected/minimal tenderness, no distention, dressings are clean, dry and intact. Objective Last Vital Signs Temp 97.2 F L 11/04/24 07:37 Pulse 82 11/04/24 07:37 Resp 20 11/04/24 07:37 BP 135/90 11/04/24 07:37 Pulse Ox 99 11/04/24 07:37 Laboratory Results - last 24 hr 11/03/24 11/04/24 07:25 06:05 WBC 9.42 RBC 4.58 Hgb 14.4 Hct 40.6 MCV 89 MCH 31.4 MCHC 35.5 RDW 12.1 Plt Count 272 MPV 9.9 Immature Gran % 0.3 Neutrophils % 68.0 Lymphocytes % 21.3 Monocytes % 9.8 Eosinophils % 0.3 Basophils % 0.3 Nucleated RBC % 0.0 Absolute Neutrophils 6.40 Absolute Lymphocytes 2.01 Absolute Monocytes 0.92 H Absolute Eosinophils 0.03 Absolute Basophils 0.03 ABO/Rh O Negative Antibody Screen NEGATIVE Time Spent with Patient Time Spent with Patient: <25 minutes Time was spent: preparing to see the patient(eg.review tests), obtaining and/or reviewing separately otained hiistory, ordering medications,tests, procedures, indepentently interpreting results, counseling the patient and care coordination
--- NOTE | 2024-11-04 08:53 | PDOC.CMIN ---
Date of service: 11/04/24 Time of Service: 08:53 Care Management Initial Assmt Initial Assessment Reason for Hospitalization: diverticulitis Functional Status/Living Situation Town of Residence: [facility] Medications Medication Management: No Issues/Barriers identified Advance Directives Advance Directives: Do you have an Advance Directive: N 08/15/22 08:16 AD On File at [facility]: N 08/15/22 08:16 Date Asked 02/07/24 02/07/24 07:38 AD Date Reviewed 11/03/24 11/03/24 12:17 COLST On File at [facility] COLST Date Scanned Code Status Resuscitation Status Full Code Portal Pt does not currently have a portal and education provided: No Portal Education: Other (not local) Insurance Coverage/Financial Issues Insurance: Medicaid Care Team Visit Care Team Role Provider Type Alee Chang Primary Care Provider NURSE PRACTITIONER Yuri Vigil MD Admit Provider [facility] STAFF PHYSICIAN Attending Provider Discharge Potential Discharge Needs: PCP F/U Appt and Surgical F/U Appt Anticipated Barriers to Discharge: None Identified Patient/Family Education Needs: Review discharge instructions, discuss Ask Me Three Transportation: Private vehicle Plan: Anticipate Vargas will return home with no new services when medically cleared. He will follow up with his surgeon and plan of care and transport with family. CM will follow and continue to support discharge planning. Social Determinants of Health Screening Social Determinants of Health last assessed: 11/04/24 Will the Patient Participate in the Screening?: Yes Do you worry about having a steady place to live?: yes Problems where you live: no known problems In the past 12 months, have you had to go without electric, gas, oil or water in your home?: no Have you or anyone in your house had to go without enough food to eat?: no Has lack of transportation kept you from medical appointments or from doing things needed for daily living?: no Has anyone in your life made you feel unsafe or unsupported?: no How hard is it for you to pay for the very basics like food, housing, medical care, and heating? Would you say it is:: Not hard at all Do you want help finding or keeping work or a job?: I do not need or want help If for any reason you need help with day-to-day activities such as bathing, preparing meals, shopping, managing finances, etc., do you get the help you need?: I don?t need any help How often do you feel lonely or isolated from those around you?: Rarely Do you speak a language other than Hebrew at home?: No Does the patient want assistance with any of the above?: No Health Related Social Needs Health related social needs: housing instability, housed, with risk of homelessness (Z59.811) and feeling lonely/isolated (Z60.8) PFSH All Active Problems Diverticulosis (Acute) Celiac disease (Acute) Sensorineural hearing loss (SNHL) of both ears (Acute) Tinnitus of both ears (Acute) Nasal congestion (Acute) Pericarditis (Acute) Chest pain (Acute) Hypertension (Chronic) Medical History Diverticulitis (~11/2022) Hx of prostatitis Epididymitis Asthma, mild intermittent ADD (attention deficit disorder) Unspecified dislocation of left knee, sequela Nightmare disorder PTSD (post-traumatic stress disorder) Pt. states no potential triggers Unresolved grief Alcohol abuse, in remission Sleep disturbance Migraines Influenza Seasonal allergies Shellfish allergy Bee sting allergy Medication monitoring encounter Restless legs Nasal obstruction Back pain Skin lesions Lymphadenopathy Fatigue Ear pain COVID-19 Surgical History History of colonoscopy (~01/2024) History of surgery on wrist Hx of wisdom tooth extraction Hx of tonsillectomy Social History (Updated 08/15/22 @ 07:49 by Vesna Leonard RN) Smoking/Tobacco Use Status: Former Tobacco Use Quit Date: 08/12/13 Smoking risk assessment performed?: Yes Alcohol Intake: former Drug use: Occasionally Substance use type: marijuana Details: edibles Housing: house Do you feel safe at home: Yes Do you feel safe in your relationship?: Yes
[2024-11-04 11:18] VITALS: BP 147/85; PULSE 80; RESP 20; TEMP 36.8; O2SAT 98
[2024-11-04] MEDS: traMADol 50 MG TAB PO (11:34)
--- NOTE | 2024-11-04 13:27 | PDOC.CMIN ---
Date of service: 11/04/24 Time of Service: 13:27 Care Management Initial Assmt Initial Assessment Reason for Hospitalization: Diverticulitis Functional Status/Living Situation Patient Presentation: Sonny was awake and laying in bed when CM arrived. He was pleasant and willing to engage in conversation. Sonny is in here due to his reoccurring diverticulitis. He lives in [place], alone, in a single family home. 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 Sonny mentions that he has tried to access the portal, and seeks help to complete setting his account. He does not have any children, however, both of his parents, and a sister live locally ([facility]). Sonny states that his friends and family will act as a support system for him. Sonny does not receive in home services, or use any assistive walking devices. Sonny said that he is now eating soft foods, and passing gas. He states he would like to stay (to Saturday) until his pain is more manageable, and has a bowel movement. Per Sonny, he has not had a bowel movement, and his pain is a level 9/10, requiring medication every 3 hours. Town of Residence: [place], [place] Resides with: Alone Significant Other/Family: Local (one sister and his parents in [facility] ) Caregiver/Guardian: Natural Supports: Lives alone but has family and friends that are local and willing to help him. 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 ) Instrumental Activities of Daily Living (ADLs): Independent Physical Functioning/Mobility Assistive Device: N/A Advance Directives Advance Directives: Do you have an Advance Directive: N 08/15/22 08:16 AD On File at [facility]: N 08/15/22 08:16 Date Asked 02/07/24 02/07/24 07:38 AD Date Reviewed 11/03/24 11/03/24 12:17 COLST On File at [facility] COLST Date Scanned Code Status Resuscitation Status Full Code Portal Pt does not currently have a portal and education provided: No Portal Education: Other (Patient has requested help to set up the portal.) Insurance Coverage/Financial Issues Insurance: Medicaid Financial Issues: None identified Care Team Visit Care Team Role Provider Type Alee Chang Primary Care Provider NURSE PRACTITIONER Yuri Vigil MD Admit Provider MD [facility] STAFF PHYSICIAN Attending Provider Discharge Potential Discharge Needs: PCP F/U Appt and Surgical F/U Appt Anticipated Barriers to Discharge: None Identified Patient/Family Education Needs: Review discharge instructions, discuss Ask Me Three Transportation: Private vehicle Plan: Anticipate that Vargas will return home with no new services. He will f/u with his PCP, surgical services and and continue per his plan of care. He will transport in a private vehicle with family. CM will continue to follow and update the plan as needed. Social Determinants of Health Screening Social Determinants of Health last assessed: 11/04/24 Will the Patient Participate in the Screening?: Yes Do you worry about having a steady place to live?: no Problems where you live: no known problems In the past 12 months, have you had to go without electric, gas, oil or water in your home?: no Have you or anyone in your house had to go without enough food to eat?: no Has lack of transportation kept you from medical appointments or from doing things needed for daily living?: no Has anyone in your life made you feel unsafe or unsupported?: no How hard is it for you to pay for the very basics like food, housing, medical care, and heating? Would you say it is:: Not hard at all Do you want help finding or keeping work or a job?: I do not need or want help If for any reason you need help with day-to-day activities such as bathing, preparing meals, shopping, managing finances, etc., do you get the help you need?: I don?t need any help How often do you feel lonely or isolated from those around you?: Rarely Do you speak a language other than Bolivian at home?: No Does the patient want assistance with any of the above?: No Health Related Social Needs Health related social needs: feeling lonely/isolated (Z60.8) PFSH All Active Problems Status post laparoscopic-assisted sigmoidectomy (Acute) Diverticulosis (Acute) Celiac disease (Acute) Sensorineural hearing loss (SNHL) of both ears (Acute) Tinnitus of both ears (Acute) Nasal congestion (Acute) Pericarditis (Acute) Chest pain (Acute) Hypertension (Chronic) Medical History Diverticulitis (~11/2022) Hx of prostatitis Epididymitis Asthma, mild intermittent ADD (attention deficit disorder) Unspecified dislocation of left knee, sequela Nightmare disorder PTSD (post-traumatic stress disorder) Pt. states no potential triggers Unresolved grief Alcohol abuse, in remission Sleep disturbance Migraines Influenza Seasonal allergies Shellfish allergy Bee sting allergy Medication monitoring encounter Restless legs Nasal obstruction Back pain Skin lesions Lymphadenopathy Fatigue Ear pain COVID-19 Surgical History (Updated 11/04/24 @ 09:28 by Patrick Griggs MD) History of colonoscopy (~01/2024) History of surgery on wrist Hx of wisdom tooth extraction Hx of tonsillectomy Social History (Updated 08/15/22 @ 07:49 by Vesna Leonard RN) Smoking/Tobacco Use Status: Former Tobacco Use Quit Date: 08/12/13 Smoking risk assessment performed?: Yes Alcohol Intake: former Drug use: Occasionally Substance use type: marijuana Details: edibles Housing: house Do you feel safe at home: Yes Do you feel safe in your relationship?: Yes
--- NOTE | 2024-11-04 13:47 | CHAPLAIN ---
Vargsa was in bed, looking uncomfortable, when I visited this morning. There was a friend/family member with him. I explained my role and offered supported. He thanked me for checking in with him.
[2024-11-04 14:37] VITALS: BP 136/91; PULSE 72; RESP 20; TEMP 36.8; O2SAT 96
[2024-11-04] MEDS: Amphet Asp/Amphet/D-Amphet 10 MG TAB PO (18:01)
[2024-11-04 19:26] VITALS: BP 146/96; PULSE 73; RESP 20; TEMP 37.2; O2SAT 98
[2024-11-04] MEDS: Enoxaparin 40 MG/0.4 ML SYR SC (19:46)
[2024-11-04] MEDS: Acetaminophen 500 MG TAB 1000 MG PO (22:51)
[2024-11-05] MEDS: Ketorolac 30 MG/ML VIAL IVP ×2 (05:15→12:12)
[2024-11-05] MEDS: Normal Saline Flush 10 ML SYR IVP ×3 (05:15→12:13)
[2024-11-05] MEDS: traMADol 50 MG TAB PO (08:13)
[2024-11-05 09:13] VITALS: RESP 20
--- NOTE | 2024-11-05 09:14 | CMDISCH_ITS ---
Date of service: 11/05/24 Time of Service: 09:14 LACE Index Scoring Tool Questions: Length of Stay (in days): 2 Was the patient admitted via the E.D.?: No E.D. Visits: 0 Answers: Total Score: 2 Risk of Readmission: Low Risk Care Management Discharge Plan Reason for Hospitalization: Diverticulitis Discharge Plan: Sonny will be discharged this afternoon to his family who will privately transport him to his home in [place]. He is agreeable to this disc harge plan. Sonny will go home with no new services and will f/u with his PCP, surgical services, and continue per his plan of care. Patient/Family Education Needs: Review of discharge instructions, activity, limitations and discuss ask me three. SDOH Health Related Social Needs: Health related social needs feeling lonely/isolated (Z 60.8)
[2024-11-05 09:46] VITALS: BP 143/99; PULSE 76; RESP 18; TEMP 37; O2SAT 98
[2024-11-05] MEDS: Acetaminophen 500 MG TAB 1000 MG PO (10:38)
--- NOTE | 2024-11-05 12:05 | DSE_ITS ---
Date of service: 11/05/24 Time of Service: 12:05 DS: Diagnosis Discharge Diagnosis (1) Status post laparoscopic-assisted sigmoidectomy: Status: Acute Asessment and Plan: 34-year-old man postop day 2 from laparoscopic sigmoid resection. Hemodynamically stable. Having good bowel function. Tolerating a regular diet. Ready for discharge home. Discharge Plan Disposition Patient Disposition: Home Condition: Improving Discharge Details Reason For Visit: diverticulitis Admit Date/Time: 11/03/24 06:11 Admit Provider: Yuri Vigil Attending Provider: Yuri Vigil Primary Care Provider: Alee Chang Hospital Course Hospital Course: 34-year-old man presented for an elective laparoscopic sigmoid resection. The procedure went well. On postoperative day 1 he was already having bowel function and tolerating regular food. Because of postoperative pain he was kept overnight. On postoperative day 2, he was converted to non-narcotic analgesia and discharged home. Home Meds and New Rx's Prescriptions: Continued polyethylene glycol 3350 17 gram/dose powder 238 g PO ONCE Qty: 238 0RF Rx Instructions: For Bowel Surgery Prep, take as directed per providers office handout instructions. bisacodyl 5 mg tablet,delayed release (DR/EC) 5 mg PO ONCE Qty: 8 0RF Rx Instructions: Per Bowel Surgery prep, take as directed per providers written handout instructions. neomycin 500 mg tablet 500 mg PO ONCE Qty: 8 0RF Rx Instructions: Take 4 tabs at 7:00 pm and 4 tabs at 11:00 pm the night before bowel surgery metronidazole 500 mg tablet 500 mg PO ONCE Qty: 8 0RF Rx Instructions: Take 4 tabs at 7:00 pm and 4 tabs at 11:00 pm the night before bowel surgery ondansetron 8 mg tablet,disintegrating 8 mg PO ONCE Qty: 3 0RF Rx Instructions: Take 1 tab at 1:00 pm and 9:00 pm the night before bowel surgery, take 1 tab at 5:30 am morning of bowel surgery albuterol sulfate 8.5 GM HFA aerosol inhaler 2 puff Inhalation Q4H PRN cyclobenzaprine 5 mg tablet 5 mg PO PRN PRN dextroamphetamine-amphetamine [Adderall] 20 mg Tablet 10 - 20 mg PO BID Rx Instructions: 20mg qam 10mg afternoon epinephrine 0.3 mg/0.3 mL auto-injector 0.3 mg IM ONCE Qty: 1 0RF Rx Instructions: as a single dose if needed for impending anaphylaxis Discharge Instructions Additional Instructions: INSTRUCTIONS: Incisions: Remove dressings tomorrow. Keep clean and dry but they do not need to be covered. It is okay to shower but no tub bathing for 1 week. Activity: As tolerated - light duty without any heavy lifting/pulling or pushing for 6-8 weeks. Diet: Regular diet as tolerated. Medications: Resume any/all of your usual/regular home medications. Follow-up: If you are having any issues or concerns call the surgery office immediately. Otherwise, call to have a followup visit with Dr. Vigil in 7-10 days. Pain control: Take Tylenol, 1000 mg, every 6 hours on a schedule for the next 3 days. You can use ibuprofen in addition to Tylenol. Ice and/or heat can also be used. Do not take narcotics. Overall: Symptoms should not be worsening. If you have any difficulty breathing or you have return of symptoms of brought you to the hospital or your pain is otherwise worsening each day and you should call the doctor's office or come into the hospital to be checked out. Activity:: Activity as Tolerated Equipment/Supplies:: No Equipment Needed Diet:: As Tolerated DS: Summary Time Spent with Patient providing and/or coordinating discharge services: Less than 30 minutes Status at Discharge Functional status at discharge: independent ambulation Overall status at discharge: patient is progressing back to baseline Mental Status: mental status grossly normal Speech and Movement: speech and movement normal Mood: congruent mood Affect: normal affect Quality:SDOH Health Related Social Needs: Health related social needs feeling lonely/isolated (Z 60.8) Exam Psych Mental Status: mental status grossly normal Speech and Movement: speech and movement normal Mood: congruent mood Affect: normal affect DS: Data Vitals/I&O Vitals and I&O: Vital Signs Temperature 98.6 F 11/05/24 09:46 Temperature Source Temporal Artery Scan 11/05/24 09:46 Pulse 76 11/05/24 09:46 Pulse Rhythm Regular 11/03/24 13:31 Pulse 95 H 11/03/24 13:06 Respiratory Rate 18 11/05/24 09:46 Respiratory Effort Normal, Non-Labored 11/03/24 13:31 Respiratory Depth Normal 03/25/25 13:31 Respiratory Pattern Normal 11/03/24 13:31 Blood Pressure 143/99 H 11/05/24 09:46 Blood Pressure Mean 83 11/03/24 13:06 Pulse Oximetry 98 11/05/24 09:46 Respiratory End-tidal CO2 35 11/03/24 13:05 Oxygen Delivery Method Room Air 11/05/24 09:46 Oxygen Flow Rate 0 11/05/24 09:46 Pain Level 8 11/05/24 11:35 Comment Patient stated that pain has increased since starting to use the bathroom. 11/04/24 19:26 Intake & Output 11/04/24 11/05/24 11/05/24 23:59 11:59 23:59 Intake Total 530 / 3528.75 370 / 370 Output Total 300 / 300 Balance 230 / 3228.75 370 / 370 Intake: IV 30 / 8.75 10 / 10 Oral 500 / 1710 360 / 360 Output: Urine 300 / 300 Other: Urine Color Yellow Yellow Urine Appearance Clear Clear Urine Odor Normal Normal Comment Patient voids ind. in the toilet. Patient voids ind. in toilet. Stool Size Moderate Small Stool Characteristics Formed Brown Black Bloody PFSH All Active Problems (Updated 11/04/24 @ 17:33 by Yuri Vigil MD) Status post laparoscopic-assisted sigmoidectomy (Acute) Diverticulosis (Acute) Sensorineural hearing loss (SNHL) of both ears (Acute) Tinnitus of both ears (Acute) Nasal congestion (Acute) Pericarditis (Acute) Chest pain (Acute) Hypertension (Chronic) Medical History (Updated 11/04/24 @ 17:33 by Yuri Vigil MD) Diverticulitis (~11/2022) Hx of prostatitis Epididymitis Asthma, mild intermittent ADD (attention deficit disorder) Unspecified dislocation of left knee, sequela Nightmare disorder PTSD (post-traumatic stress disorder) Pt. states no potential triggers Unresolved grief Alcohol abuse, in remission Sleep disturbance Migraines Influenza Seasonal allergies Shellfish allergy Bee sting allergy Medication monitoring encounter Restless legs Nasal obstruction Back pain Skin lesions Lymphadenopathy Fatigue Ear pain COVID-19 Surgical History (Updated 11/04/24 @ 09:28 by Patrick Griggs MD) History of colonoscopy (~01/2024) History of surgery on wrist Hx of wisdom tooth extraction Hx of tonsillectomy Social History (Updated 08/15/22 @ 07:49 by Vesna Leonard RN) Smoking/Tobacco Use Status: Former Tobacco Use Quit Date: 08/12/13 Smoking risk assessment performed?: Yes Alcohol Intake: former Drug use: Occasionally Substance use type: marijuana Details: edibles Housing: house Do you feel safe at home: Yes Do you feel safe in your relationship?: Yes Time Spent with Patient Time Spent with Patient: <45 minutes Time was spent: preparing to see the patient(eg.review tests), obtaining and/or reviewing separately otained hiistory, indepentently interpreting results, counseling the patient and care coordination
== END 2024-11-05 13:35 | disposition home or self-care (01) | DRG 331 ==
LOC: PDS 12:17 → MS 13:29
PROVIDERS: Admitting Provider Surgery; PCP Nurse Practitioner Family; Visit Provider Surgery
PROC: 0DTN4ZG Resection of Sigmoid Colon, Percutaneous Endoscopic Approach, Hand-Assisted (ICD-10-PCS; CPT 44204; principal; 2024-11-03 07:30)
DX: K57.32 Diverticulitis of large intestine without perforation or abscess without bleeding (principal); K90.0 Celiac disease; H90.3 Sensorineural hearing loss, bilateral; I10 Essential (primary) hypertension; F98.8 Other specified behavioral and emotional disorders with onset usually occurring in childhood and adolescence; F51.5 Nightmare disorder; F43.10 Post-traumatic stress disorder, unspecified; F10.11 Alcohol abuse, in remission; G43.909 Migraine, unspecified, not intractable, without status migrainosus; G25.81 Restless legs syndrome; Z87.891 Personal history of nicotine dependence
CPT/HCPCS: 44204; 36415; 86850; 86900; 86901; 88305; J1650; 85025; 88307; J0131; J0665; J0666; J0690; J1100; J1171; J1644; J1885; J2250; J2371; J2405; J2704; J3010; J3475; J3490